=== PATIENT | female | born 1940 | race Caucasian/White ===

== ENCOUNTER 2016-11-03 13:23 | Emergency (ER) | payer MEDICARE ==
[~2016-11-03] VITALS: Ht 170.2 cm; Wt 76.0 kg
[~2016-11-03 13:23] MED LIST: HYDR-3533 PO; LEVO112T2 PO; METO25 PO; WARF5TAB PO; ZOCO40TA PO
[2016-11-03 13:26] VITALS: BP 145/68; PULSE 66; RESP 16; TEMP 98.3; O2SAT 97
[2016-11-03] MEDS ORDERED: WARF-23 PO (13:41)
[2016-11-03] MEDS ORDERED: LEVO137T2 PO (13:41)
[2016-11-03] MEDS ORDERED: METO25TA3 PO (13:41)
[2016-11-03] MEDS ORDERED: SIMV10TA PO (13:41)
[2016-11-03] MEDS ORDERED: SODIUM CHLORIDE 0.9% FLUSH 10 ML FLUSH IV FLUSH PRN (13:45)
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
[2016-11-03 13:57] VITALS: RESP 16; O2SAT 99
[2016-11-03 14:23] LABS: AUTOMATED NEUTROPHIL # 3.1 TH/MM3 (1.8-7.7); BASOPHIL # 0.1 TH/MM3 (0-0.2); BASOPHIL % 1.1 % (0.0-2.0); EOSINOPHIL # 0.1 TH/MM3 (0-0.4); EOSINOPHIL % 1.6 % (0.0-4.0); HEMATOCRIT 34.3 % (35.0-46.0); HEMO FLAGS DIFF FINAL; LYMPH % 29.2 % (9.0-44.0); LYMPHOCYTE # 1.5 TH/MM3 (1.0-4.8); MEAN CELL VOLUME 89.9 FL (80.0-100.0); MEAN CORPUSCULAR HEMOGLOBIN 29.9 PG (27.0-34.0); MEAN CORPUSCULAR HGB CONC 33.2 % (32.0-36.0); MONO % 7.2 % (0.0-8.0); NEUT % 60.9 % (16.0-70.0); PLATELET COUNT 218 TH/MM3 (150-450); RED BLOOD COUNT 3.82 MIL/MM3 (4.00-5.30); RED CELL DISTRIBUTION WIDTH 13.6 % (11.6-17.2); WHITE BLOOD COUNT 5.2 TH/MM3 (4.0-11.0)
--- NOTE | 2016-11-03 14:35 | RADHPO ---
EXAM DATE/TIME: 11/03/2016 14:19 [facility] COMPARISON: No previous studies available for comparison. INDICATIONS : Fell, has pain MEDICAL HISTORY : None. SURGICAL HISTORY : brain, r forearm ENCOUNTER: Initial ACUITY: 1 day PAIN SCORE: 5/10 LOCATION: Right forearm FINDINGS: There is a remote healed fracture the distal radial metaphysis. Dorsal plate and screw fixation of th e proximal ulna identified with remote fracture deformity of the proximal radius identified. CONCLUSION: No acute disease. Satish Stokes MD on November 03, 2016 at 14:33 Board Certified Radiologist. This report was verified electronically.
--- NOTE | 2016-11-03 14:36 | RADHPO ---
EXAM DATE/TIME: 11/03/2016 14:16 [facility] COMPARISON: WRIST RIGHT COMPLETE ([id number]), September 25, 2015, 16:08. INDICATIONS : fell, has pain MEDICAL HISTORY : None. SURGICAL HISTORY : Brain, right forearm ENCOUNTER: Initial ACUITY: 1 day PAIN SCORE: 5/10 LOCATION: Right wrist FINDINGS: Nonacute distal radial metaphyseal fracture, healed. Remote fourth metacarpal fracture. No acute frac tures. Decreased bone density. CONCLUSION: No acute disease. Satish Stokes MD on November 03, 2016 at 14:34 Board Certified Radiologist. This report was verified electronically.
--- NOTE | 2016-11-03 14:37 | RADHPO ---
EXAM DATE/TIME: 11/03/2016 14:13 [facility] COMPARISON: HAND RIGHT COMPLETE ([id number]), February 06, 2016, 14:46. INDICATIONS : Fell, has pain MEDICAL HISTORY : None. SURGICAL HISTORY : brain, right forearm ENCOUNTER: Initial ACUITY: 1 day PAIN SCORE: 5/10 LOCATION: Right hand FINDINGS: Decreased bone density. Remote fourth metacarpal, distal radial metaphyseal fracture and third middle phalanx fractures. There is mild osteoarthritis. No acute fractures or dislocations. CONCLUSION: No acute disease. Satish Stokes MD on November 03, 2016 at 14:34 Board Certified Radiologist. This report was verified electronically.
[2016-11-03 14:50] LABS: GLUCOSE,URINE NEG (NEG); KETONE, URINE NEG (NEG); NITRITE,URINE NEG (NEG); PH, URINE 6.5 (5.0-8.5)
[2016-11-03 14:55] LABS: BLOOD, URINE MOD (NEG)
[2016-11-03 14:56] LABS: METHOD OF COLLECTION CLEAN CATCH; URINE COLOR STRAW (YELLW/STRAW)
[2016-11-03 14:58] LABS: CULTURE IF INDICATED CULT NOT INDICATED; SQUAMOUS EPITHELIAL CELL URINE 0-5 /hpf (0-5); WBC, URINE 0-2 /hpf (0-5)
[2016-11-03 14:59] LABS: COMMENT (UR) CULT NOT INDICATED
--- NOTE | 2016-11-03 15:08 | RADHPO ---
EXAM DATE/TIME: 11/03/2016 14:37 [facility] COMPARISON: CT BRAIN W/O CONTRAST, April 30, 2016, 11:45. INDICATIONS : Fall today, general weakness. RADIATION DOSE: 63.98 CTDIvol (mGy) MEDICAL HISTORY : pulmonary embolism, brain cancer, hypertension SURGICAL HISTORY : Craniotomy. Hysterectomy. ENCOUNTER: Initial ACUITY: 1 day PAIN SCALE: 0/10 LOCATION: Bilateral head TECHNIQUE: Multiple contiguous axial images were obtained of the head. Using automated exposure control and adj ustment of the mA and/or kV according to patient size, radiation dose was kept as low as reasonably a chievable to obtain optimal diagnostic quality images. FINDINGS: There is no evidence for intracranial hemorrhage, mass effect, mass lesions, or edema. The visualize d bony structures appear intact. Slight degree of brain atrophy is seen. Slight periventricular whit e matter changes are seen nonspecific mostly consistent with chronic small vessel ischemic changes. There are no signs of acute infarction for technique. There is encephalomalacia in the left middle cr anial fossa and frontal lobe with ex vacuo dilatation of the left ventricle and encephalomalacia of l eft basal ganglia chronic in nature and not changed. CONCLUSION: Slight atrophic and small vessel ischemic changes without any evidence for acute hemorrhage or mass effect. Marly Baron MD on November 03, 2016 at 15:05 Board Certified Radiologist. This report was verified electronically.
[2016-11-03 15:17] LABS: APTT (PATIENT) 28.7 SEC (24.3-30.1); INTERNATIONAL NORMALIZED RATIO 1.4 RATIO; PROTHROMBIN TIME - PATIENT 15.2 SEC (9.8-11.6)
[2016-11-03 15:43] LABS: BICARBONATE 28.6 MEQ/L (21.0-32.0)
[2016-11-03 15:57] VITALS: BP 140/60
== END 2016-11-03 16:31 | disposition home or self-care (01) ==
LOC: PHED 13:23
DX: S69.91XA Unspecified injury of right wrist, hand and finger(s), initial encounter (principal); W19.XXXA Unspecified fall, initial encounter; Y92.481 Parking lot as the place of occurrence of the external cause; Z79.01 Long term (current) use of anticoagulants
CPT/HCPCS: 70450; 73090; 73110; 73130; 80048; 81001; 85025; 85610; 85730; 99284; L3908

== ENCOUNTER 2016-11-21 13:37 | Emergency (ER) | payer MEDICARE ==
[~2016-11-21] VITALS: Ht 170.2 cm; Wt 76.0 kg
[~2016-11-21 13:37] MED LIST changes: -HYDR-3533 PO; -LEVO112T2 PO; +LEVO137T2 PO; -METO25 PO; +METO25TA3 PO; +SIMV10TA PO; +WARF-23 PO; -WARF5TAB PO; -ZOCO40TA PO
[2016-11-21 13:39] VITALS: BP 160/77; PULSE 67; RESP 16; TEMP 97.7; O2SAT 96
--- NOTE | 2016-11-21 13:56 | PD ---
HPI Chief Complaint: Fall Time Seen by Provider: 13:44 Travel History International Travel<30 days: No Contact w/Intl Traveler<30days: No Traveled to known affect area: No History of Present Illness HPI The patient is a 76-year-old female who presents emergency department for right shoulder pain and right forearm and hand pain after mechanical fall. The patient states she tripped and fell over a curb, landing on her right upper extremity. The patient complains of pain over the right hand, right wrist, and right clavicle. Chest complains right leg pain, however, is able to ambulate without difficulty. The patient does note a superficial abrasion to the right hand, states her last tetanus shot was 2 years ago. The patient denies any head injury or neck pain after the fall. She denies any accompanying chest pain , shortness breath, nausea, vomiting, or abdominal pain. Symptoms are mild to moderate, exacerbated after falling, and there are no current alleviating factors. PFSH Past Medical History Hx Anticoagulant Therapy: Yes (WARFARIN) Cancer: Yes (BRAIN) Cardiovascular Problems: Yes (HTN, CHOL - STATES BRAIN ANEURYSM) High Cholesterol: Yes Chemotherapy: No Cerebrovascular Accident: Yes (right sided weakness) Diabetes: No Diminished Hearing: No Endocrine: No Gastrointestinal Disorders: No Genitourinary: No Hypertension: Yes Implanted Vascular Access Dvce: No Musculoskeletal: No Neurologic: Yes Psychiatric: No Respiratory: No Immunizations Current: Yes Radiation Therapy: No Thyroid Disease: Yes ?: Not Menopausal: Yes Past Surgical History Abdominal Surgery: No Cardiac Surgery: No Ear Surgery: No Endocrine Surgery: No Eye Surgery: No Genitourinary Surgery: No Gynecologic Surgery: Yes (HYSTERECTOMY) Hysterectomy: Yes Neurologic Surgery: Yes (CRANIOTOMY) Oral Surgery: No Thoracic Surgery: No Tonsillectomy: Yes Other Surgery: Yes Social History Alcohol Use: Yes (RARELY) Tobacco Use: No (quit 12 yrs ago smoked cigs) Substance Use: No Allergies-Medications (Allergen,Severity, Reaction): Coded Allergies: No Known Allergies (Unverified , 11/21/16) Reported Meds & Prescriptions Reported Meds & Active Scripts Active Reported Levothyroxine (Levothyroxine Sodium) 137 Mcg Tab 137 Mcg PO DAILY Warfarin 5 Mg Tab 5 Mg PO DAILY Simvastatin 10 Mg Tab 10 Mg PO DAILY Metoprolol Tartrate 25 Mg Tab 25 Mg PO DAILY Review of Systems Except as stated in HPI: all other systems reviewed are Neg HENT: Positive: Other (previous head/brain surgery for tumor), No: Headaches, Neck Pain Cardiovascular: No: Chest Pain or Discomfort Respiratory: No: Shortness of Breath Gastrointestinal: No: Nausea, Vomiting Musculoskeletal: Positive: Limited ROM, Edema, Pain Skin: Positive Other (abrasion to the right hand) Physical Exam Narrative GENERAL: Awake, alert, very pleasant 76-year-old female who appears her stated age and is in no acute respiratory distress. SKIN: Focused skin assessment warm/dry. Superficial abrasion of the extensor surface of the right hand over the fifth MCP. HEAD: Atraumatic. Normocephalic. EYES: No injection or drainage. ENT: No nasal bleeding or discharge. Mucous membranes pink and moist. NECK: Trachea midline. No JVD. CARDIOVASCULAR: Regular rate and rhythm. No murmur appreciated. RESPIRATORY: No accessory muscle use. Clear to auscultation. Breath sounds equal bilaterally. GASTROINTESTINAL: Abdomen soft, non-tender, nondistended. MUSCULOSKELETAL: The patient has mild deformity to the right hand with an abrasion over the fourth and fifth metacarpal. There is some mild edema to the right wrist with tenderness over the mid to distal right forearm and right wrist. Patient also has mild swelling over the mid right clavicle with mild tenderness. Positive radial pulses. Patient is able fully flex and extend the hips and knees bilaterally. The patient is able stand on the left leg alone and the right leg alone without difficulty. NEUROLOGICAL: Awake and alert. No obvious cranial nerve deficits. Motor grossly within normal limits. Normal speech. PSYCHIATRIC: Appropriate mood and affect; insight and judgment normal. Data Data Last Documented VS Vital Signs Date Time Temp Pulse Resp B/P Pulse Ox O2 Delivery O2 Flow Rate FiO2 11/21/16 13:39 97.7 67 16 160/77 96 Orders Clavicle (11/21/16 ) Forearm (2vws) (11/21/16 ) Hand, Limited (2vws) (11/21/16 ) Acetaminophen (Tylenol) (11/21/16 14:00) MDM Medical Decision Making Medical Screen Exam Complete: Yes Emergency Medical Condition: Yes Medical Record Reviewed: Yes Interpretation(s) X-ray of the right hand reveals no evidence of acute fracture. X-ray of the right forearm reveals postsurgical changes, no evidence of acute fracture. X-ray the right clavicle reveals no evidence of acute fracture Differential Diagnosis Differential diagnosis includes fracture, sprain, strain, hematoma, abrasion, laceration, dislocation. Narrative Course X-ray the right forearm, right clavicle, and right hand were obtained. The patient was administered Tylenol 650 mg orally for pain. The patient's tetanus shot is up-to-date per her report. X-rays reveal no acute fractures, duo reveal old injuries. The patient was placed in a Velcro wrist splint. She is advised to use Tylenol and/or Motrin as needed for pain, elevate, ice, and activity as tolerated. The patient will be provided a copy of her x-rays at discharge. Diagnosis Primary Impression: Fall Qualified Code: W19.XXXA - Fall, initial encounter Additional Impression: Right wrist injury Qualified Code: S69.91XA - Right wrist injury, initial encounter Patient Instructions: General Instructions Additional Instructions: Velcro wrist splint. Elevate, ice, activity as tolerated. Tylenol and or Motrin at home as needed for pain. Return if symptoms worsen or progress. Med/Other Pt SpecificInfo: No Change to Meds Disposition: 01 DISCHARGE HOME Condition: Stable Cruzito Lanier MD November 21, 2016 13:56
[2016-11-21] MEDS ORDERED: ACETAMINOPHEN 325 MG TAB PO ONE (14:00)
--- NOTE | 2016-11-21 15:53 | RADHPO ---
EXAM DATE/TIME: 11/21/2016 13:53 [facility] COMPARISON: No previous studies available for comparison. INDICATIONS : Right hand pain/laceration/swelling around MCP joint. MEDICAL HISTORY : Hyperthyroidism. Hypertension Hypercholesterolemia. CVA. SURGICAL HISTORY : Tonsillectomy. Craniotomy. Hysterectomy. Left ORIF leg. Left knee arthroscopy. Right ORIF forearm. ENCOUNTER: Initial ACUITY: 1 day PAIN SCORE: 10/10 LOCATION: Right hand. FINDINGS: Osseous structures are osteopenic. There is no evidence of acute fracture. There is no fracture of t he distal radius. Old fractures of the fourth and fifth metacarpals are also present. Joint spaces ar e maintained. CONCLUSION: 1. There is no evidence of acute fracture. Per Carrillo MD on November 21, 2016 at 15:51 Board Certified Radiologist. This report was verified electronically.
--- NOTE | 2016-11-21 15:56 | RADHPO ---
EXAM DATE/TIME: 11/21/2016 13:53 [facility] COMPARISON: No previous studies available for comparison. INDICATIONS : Right clavicular pain post fall today. MEDICAL HISTORY : Hypertension. Hypothyroidism. Hypercholesterolemia. CVA. SURGICAL HISTORY : Tonsillectomy. Discectomy, cervical. Hysterectomy. Left ORIF leg. Left knee arthroscopy.Right ORIF fo rearm. ENCOUNTER: Initial ACUITY: 1 day PAIN SCORE: 5/10 LOCATION: Right clavicle. FINDINGS: Osseous structures are osteopenic. There is an old fracture of the midshaft of the clavicle. The kelsey ohumeral joint is intact. CONCLUSION: 1. There is no evidence of acute fracture. Per Carrillo MD on November 21, 2016 at 15:54 Board Certified Radiologist. This report was verified electronically.
--- NOTE | 2016-11-21 15:56 | RADHPO ---
EXAM DATE/TIME: 11/21/2016 13:53 [facility] COMPARISON: FOREARM RIGHT (2VWS), November 03, 2016, 14:19. INDICATIONS : Right forearm pain post fall. MEDICAL HISTORY : Hyperparathyroidism. Hypertension Hypercholesterolemia. CVA. SURGICAL HISTORY : Tonsillectomy. Craniotomy. Hysterectomy. Left ORIF leg. Left knee arthroscopy. Right forearm ORIF. ENCOUNTER: Initial ACUITY: 1 day PAIN SCORE: 5/10 LOCATION: Right forearm. FINDINGS: There is previous internal fixation of a fracture of the proximal ulna in anatomic alignment. There i s an old fracture of the radial head which is ununited. Osseous structures are osteopenic. Old distal radius fracture is also present. CONCLUSION: 1. Postsurgical changes as above. There is no evidence of acute fracture. Per Carrillo MD on November 21, 2016 at 15:51 Board Certified Radiologist. This report was verified electronically.
== END 2016-11-21 16:09 | disposition home or self-care (01) ==
LOC: PHEFT 13:37
DX: S69.91XA Unspecified injury of right wrist, hand and finger(s), initial encounter (principal); I10 Essential (primary) hypertension; W18.09XA Striking against other object with subsequent fall, initial encounter; Y92.488 Other paved roadways as the place of occurrence of the external cause; Z79.01 Long term (current) use of anticoagulants
CPT/HCPCS: 73000; 73090; 73120; 99284; L3908

== ENCOUNTER 2016-11-24 15:00 | Inpatient (IN) | payer MEDICARE ==
[~2016-11-24] VITALS: Ht 170.2 cm; Wt 75.3 kg
[2016-11-24] VITALS (8 sets, daily range): BP systolic 155–221; BP diastolic 70–108; PULSE 63–88; RESP 16–20; TEMP 97.8–97.9; O2SAT 93–99
--- NOTE | 2016-11-24 16:14 | PD ---
HPI Chief Complaint: Injury Time Seen by Provider: 15:06 Travel History International Travel<30 days: No Contact w/Intl Traveler<30days: No Traveled to known affect area: No History of Present Illness HPI 76yo F presents to the ED with c/o right hand pain s/p slip and fall on outstretched hand an hour prior to coming. Pt trip during the transition from carpet to tile and landed on right hand. Denies any head trauma, LOC, chest pain , sob, n/v, abdominal pain, focal weakness or numbness. Pt states pain is mainly in fingers but had some right elbow and shoulder pain as well. PFSH Past Medical History Hx Anticoagulant Therapy: Yes (WARFARIN) Cancer: Yes (BRAIN) Cardiovascular Problems: Yes (HTN, CHOL - STATES BRAIN ANEURYSM) High Cholesterol: Yes Chemotherapy: No Cerebrovascular Accident: Yes (right sided weakness) Diabetes: No Diminished Hearing: No Endocrine: No Gastrointestinal Disorders: No Genitourinary: No Hypertension: Yes Implanted Vascular Access Dvce: No Musculoskeletal: No Neurologic: Yes Psychiatric: No Respiratory: No Immunizations Current: Yes Radiation Therapy: No Thyroid Disease: Yes Menopausal: Yes Past Surgical History Abdominal Surgery: No Cardiac Surgery: No Ear Surgery: No Endocrine Surgery: No Eye Surgery: No Genitourinary Surgery: No Gynecologic Surgery: Yes (HYSTERECTOMY) Hysterectomy: Yes Neurologic Surgery: Yes (CRANIOTOMY) Oral Surgery: No Thoracic Surgery: No Tonsillectomy: Yes Other Surgery: Yes Social History Alcohol Use: Yes (RARELY) Tobacco Use: No (quit 12 yrs ago smoked cigs) Substance Use: No Allergies-Medications (Allergen,Severity, Reaction): Coded Allergies: Morphine (Verified Allergy, Mild, 11/24/16) Reported Meds & Prescriptions Reported Meds & Active Scripts Active Acetaminophen Extra Strength (Acetaminophen) 500 Mg Tab 500 Mg PO Q6H PRN Reported Levothyroxine (Levothyroxine Sodium) 137 Mcg Tab 137 Mcg PO DAILY Simvastatin 10 Mg Tab 10 Mg PO DAILY Metoprolol Tartrate 25 Mg Tab 25 Mg PO DAILY Review of Systems Except as stated in HPI: all other systems reviewed are Neg Physical Exam Narrative GENERAL: 76yo F in mild distress. SKIN: Focused skin assessment warm/dry. HEAD: Atraumatic. Normocephalic. EYES: Pupils equal and round. No scleral icterus. No injection or drainage. ENT: No nasal bleeding or discharge. Mucous membranes pink and moist. NECK: Trachea midline. No JVD. CARDIOVASCULAR: Regular rate and rhythm. No murmur appreciated. RESPIRATORY: No accessory muscle use. Clear to auscultation. Breath sounds equal bilaterally. GASTROINTESTINAL: Abdomen soft, non-tender, nondistended. MUSCULOSKELETAL: RUE: Radial pulse 2+. +TTP MCP 3-5. Sensation intact. No ttp distal radius and ulna. Abrasion on right elbow with some ttp. No forearm ttp. Compartment soft. Mild ttp right shoulder but good range of motion. Sensation intact. NEUROLOGICAL: Awake and alert. No obvious cranial nerve deficits. Motor grossly within normal limits. Normal speech. PSYCHIATRIC: Appropriate mood and affect; insight and judgment normal. Data Data Last Documented VS Vital Signs Date Time Temp Pulse Resp B/P Pulse Ox O2 Delivery O2 Flow Rate FiO2 11/24/16 19:08 88 18 221/93 99 Room Air 11/24/16 15:03 97.8 Orders Hand, Limited (2vws) (11/24/16 ) Elbow, Limited (Ap&Lat) (11/24/16 ) Shoulder, Limited(2vws) (11/24/16 ) Acetaminophen (Tylenol) (11/24/16 17:15) Splint Or Brace Apply/Monitor (11/24/16 17:09) Hydralazine Inj (Apresoline Inj) (11/24/16 17:30) Morphine Inj (Morphine Inj) (11/24/16 17:30) Clonidine (Catapres) (11/24/16 19:15) Diphenhydramine Inj (Benadryl Inj) (11/24/16 19:30) Methylprednisolone So Succ Inj (Solumedr (11/24/16 19:45) Admit Order (Ed Use Only) (11/24/16 19:36) [facility] Medical Decision Making Medical Screen Exam Complete: Yes Emergency Medical Condition: Yes Interpretation(s) Last Impressions Shoulder X-Ray 11/24/16 0000 Signed Impressions: Service Date/Time: Thursday, November 24, 2016 15:40 - CONCLUSION: No acute abnormality is seen. There is chronic change at the right clavicle and right 6th rib. The patient has evidence of right medial chest surgery. Doug Orosco MD Hand X-Ray 11/24/16 0000 Signed Impressions: Service Date/Time: Thursday, November 24, 2016 15:32 - CONCLUSION: Suspected acute fracture at the anterior distal aspect of the 5th metacarpal. Doug Orosco MD Elbow X-Ray 11/24/16 0000 Signed Impressions: Service Date/Time: Thursday, November 24, 2016 15:37 - CONCLUSION: Chronic change at the elbow as described above. Doug Orosco MD Differential Diagnosis Fracture vs. dislocation vs. contusion Narrative Course 76yo F with right hand pain s/p trip and fall on outstretched hand today. Pt states she is up to date on tetanus, last time was 2 years ago. Xray right shoulder showed no acute abnormality. Xray right elbow showed chronic change at elbow. Xray right hand showed suspected fracture at the anterior distal aspect of the 5th metacarpal. Pt does have tenderness there. Neurovascular intact. No open wounds. Ulnar gutter splint placed. Pt to follow up with hand surgery clinic as outpatient. Pt given acetaminophen for pain. BP was very elevated so hydralazine 10mg IV was given. Pt was also given morphine 2mg IV for pain but started feeling nauseous and shaky. Pt reevaluated at bedside and was no longer nauseous but feels shaking. Pt given clonidine 0.1mg PO. Pt reevaluated at bedside and states she feels her throat swelling. Uvula is midline. Patent airway. No rash. Will give diphenhydramine 50mg IV and reevaluate. Lungs are clear bilaterally. Placed morphine as an allergy. Pt also given 125 mg solumedrol IV. Discussed with Dr. Russo and accepted to his service in ICU for airway monitoring. Critical Care Narrative Aggregate critical care time was 35 minutes. Time to perform other separately billable procedures was not included in the critical care time. My time did not include minutes spent treating any other patients simultaneously or on activities that did not directly contribute to the patient's treatment. The services I provided to this patient were to treat and/or prevent clinically significant deterioration that could result in: cardiovascular collapse or . I provided critical care services requiring my management, as noted below: Chart data review, documentation time, medication orders and management, vital sign assessments/reviewing monitor data, ordering and reviewing lab tests, ordering and interpreting/reviewing x-rays and diagnostic studies, care of the patient and discussion of the patient with the admitting physicians. Diagnosis Primary Impression: Allergic reaction Qualified Code: T78.40XA - Allergic reaction, initial encounter Additional Impression: Metacarpal bone fracture Qualified Code: S62.366A - Closed nondisplaced fracture of neck of fifth metacarpal bone of right hand, initial encounter Admitting Information Admitting Physician Requests: Observation Patient Instructions: General Instructions Departure Forms: Tests/Procedures Additional Instructions: Please follow up with hand surgery clinic in 3-7 days. Return to the ED if symptoms worsen. Med/Other Pt SpecificInfo: Prescription(s) given Scripts Acetaminophen (Acetaminophen Extra Strength)500 Mg [id number] Mg PO Q6H PRN (PAIN SCALE 1 TO 4) #20 TAB Ref 0 Prov:Ana Fischer DO 11/24/16 Disposition: 01 DISCHARGE HOME Condition: Stable Ana Fischer DO November 24, 2016 16:14
--- NOTE | 2016-11-24 16:16 | RADRPT ---
EXAM DATE/TIME: 11/24/2016 15:32 [facility] COMPARISON: HAND RIGHT COMPLETE ([id number]), February 06, 2016, 14:46. HAND RIGHT LIMITED (2VWS), November 21, 2016, 13:5 3. INDICATIONS : Right hand pain post fall, Swelling MEDICAL HISTORY : Hyperthyroidism. Hypertension Hypercholesterolemia. CVA. SURGICAL HISTORY : Tonsillectomy. Craniotomy. Hysterectomy. Left ORIF leg. Left knee arthroscopy. Right ORIF forearm ENCOUNTER: Initial ACUITY: 4 - 6 days PAIN SCORE: 10/10 LOCATION: Right hand FINDINGS: There appears to be acute fracturing of the distal 5th metacarpal. This is best seen on the lateral view. It appears this involves the anterior aspect of the 5th metacarpal head. There appears to be an old healed fracture deformity at the distal 4th metacarpal. No other possible fracture is seen. The bones and joints are normally aligned. CONCLUSION: Suspected acute fracture at the anterior distal aspect of the 5th metacarpal. Doug Orosco MD on November 24, 2016 at 16:11 Board Certified Radiologist. This report was verified electronically.
--- NOTE | 2016-11-24 16:17 | RADRPT ---
EXAM DATE/TIME: 11/24/2016 15:37 [facility] COMPARISON: ELBOW RIGHT LIMITED (AP & LAT), September 25, 2015, 16:11. INDICATIONS : Right elbow pain, Post fall MEDICAL HISTORY : Hyperparathyroidism. Hypertension Hypercholesterolemia. CVA. SURGICAL HISTORY : Tonsillectomy. Craniotomy. Hysterectomy. Left ORIF leg. Left knee Tonsillectomy. Craniotomy. Hysterec octavio. Left ORIF leg. Left knee ENCOUNTER: Initial ACUITY: 4 - 6 days PAIN SCORE: 10/10 LOCATION: Right elbow FINDINGS: There is an orthopedic plate seen along the proximal ulna. The elbow joint appears aligned. There i s a chronic fracture deformity at the proximal radius. The radial head appears separate from the rad ial shaft. This appearance is unchanged from the prior examination. A significant effusion is not s een. An acute fracture is not seen. CONCLUSION: Chronic change at the elbow as described above. Doug Orosco MD on November 24, 2016 at 16:14 Board Certified Radiologist. This report was verified electronically.
--- NOTE | 2016-11-24 16:24 | RADRPT ---
EXAM DATE/TIME: 11/24/2016 15:40 [facility] COMPARISON: No previous studies available for comparison. INDICATIONS : Right shoulder pain post fall MEDICAL HISTORY : Hyperparathyroidism. Hypertension Hypercholesterolemia. CVA. SURGICAL HISTORY : Tonsillectomy. Craniotomy. Hysterectomy. Left ORIF leg. Left knee arthrosco py. Right forearm ORIF. ENCOUNTER: Initial ACUITY: 4 - 6 days PAIN SCORE: 5/10 LOCATION: Right forearm FINDINGS: An acute fracture is not seen. The glenohumeral joint and acromioclavicular joint appear grossly nor karley aligned. There is some questionable deformity at the mid clavicle potentially from prior injur y. There also appears to be a deformity at the 6th right rib. Clips are seen over the medial right chest. CONCLUSION: No acute abnormality is seen. There is chronic change at the right clavicle and right 6th rib. The patient has evidence of right medial chest surgery. Doug Orosco MD on November 24, 2016 at 16:18 Board Certified Radiologist. This report was verified electronically.
[2016-11-24] MEDS ORDERED: ACETAMINOPHEN 500 MG CPLT PO ONE (17:15)
[2016-11-24] MEDS ORDERED: ACET500T36 PO (17:27)
[2016-11-24] MEDS ORDERED: MORPHINE SULFATE 4 MG/ML INJ IV PUSH ONE (17:30)
[2016-11-24] MEDS ORDERED: hydrALAZINE HCL 20 MG/ML VIAL IV PUSH ONE (17:30)
[2016-11-24] MEDS ORDERED: cloNIDine HCL 0.1 MG TAB PO ONE (19:15)
[2016-11-24] MEDS ORDERED: diphenhydrAMINE HCL 50 MG/ML VIAL IV PUSH ONE (19:30)
[2016-11-24] MEDS ORDERED: methylPREDNISolone SOD SUCC 125 MG/2 ML VIAL IVP ONE (19:45)
[2016-11-24] MEDS ORDERED: cloNIDine HCL 0.1 MG TAB PO PRN (20:15)
[2016-11-24] MEDS ORDERED: ACETAMINOPHEN 500 MG CPLT PO PRN (20:15)
[2016-11-24] MEDS ORDERED: ENALAPRILAT 1.25 MG/ML VIAL IV PRN (20:15)
[2016-11-24] MEDS ORDERED: LABETALOL HCL 100 MG/20 ML VIAL IV PRN (20:15)
[2016-11-24] MEDS ORDERED: diphenhydrAMINE HCL 25 MG CAP PO PRN (20:15)
[2016-11-24] MEDS ORDERED: SODIUM CHLORIDE 0.9% FLUSH 10 ML FLUSH IV FLUSH PRN (20:15)
[2016-11-24] MEDS ORDERED: CHLORHEXIDINE GLUCONATE 2 % 1 PACK (2 CLOTHS)(extra cloths) TOPICAL PRN (21:30)
[2016-11-24 21:47] LABS: HEMATOCRIT 37.4 % (35.0-46.0); MEAN CELL VOLUME 89.7 FL (80.0-100.0); MEAN CORPUSCULAR HEMOGLOBIN 29.1 PG (27.0-34.0); MEAN CORPUSCULAR HGB CONC 32.4 % (32.0-36.0); PLATELET COUNT 219 TH/MM3 (150-450); RED BLOOD COUNT 4.17 MIL/MM3 (4.00-5.30); RED CELL DISTRIBUTION WIDTH 14.6 % (11.6-17.2); REVIEW FLAG FINAL; WHITE BLOOD COUNT 5.9 TH/MM3 (4.0-11.0)
[2016-11-24 22:02] LABS: INTERNATIONAL NORMALIZED RATIO 2.1 RATIO; PROTHROMBIN TIME - PATIENT 23.5 SEC (9.8-11.6)
[2016-11-24 22:07] LABS: BICARBONATE 25.7 MEQ/L (21.0-32.0); POTASSIUM 3.8 MEQ/L (3.5-5.1)
--- NOTE | 2016-11-24 22:24 | MH ---
cc: TILA RUSSO MD DATE OF ADMISSION 11/24/2016 DATE OF : [address] Ma REASON FOR ADMISSION Fall and injury. HISTORY OF PRESENT ILLNESS The patient is a very pleasant 76-year female with significant past medical history of hypertension, hypothyroidism and hyperlipidemia. As per patient, when she was shopping she tripped and fell on outstretched hand. She had pain so she was brought to the ER. She was transitioned from carpet and tile. When she fell down, she started having pain but there is no head trauma, loss of consciousness or blackout. She has no dizziness or presyncope. The patient has no shortness of breath, nausea, vomiting. Has no chest pain or diaphoresis. There is no numbness or tingling sensation. She was brought to the emergency room. In the emergency room, evaluated by the ER physician, found the patient has a fifth metacarpal fracture. During her stay, the patient was found to have high blood pressure in 200s for which she was given some medication, but it was still high. It came down and then came back again. During her stay, the patient was given morphine. After morphine, she was feeling just nervous, nauseous and also feeling swelling in her throat. At that time, ER physician examined her. Her uvula was midline. She was given diphenhydramine 50 mg IV. After discussion with the emergency room physician, Solu-Medrol was given one time. She has no shortness of breath as per ER physician. The patient was examined with the SHEET ROCK APPLICATOR. As per the SHEET ROCK APPLICATOR, she had swollen tongue at that time. When I saw the patient in the emergency room, she was slightly anxious and she was feeling slightly full in her throat, but it is a lot better than before. She has no difficulty in swallowing. No difficulty in breathing. She has no wheezing. There is no headache or dizziness. She has some ache on movement of the right hand, but there is no other associated symptoms. The patient denies any chest pain, diaphoresis, palpitations. The patient denies any abdominal pain. Has no visual symptom or hearing problem. No headache or dizziness. PAST MEDICAL HISTORY As described above. MEDICATIONS Reviewed. As per record, 1. Levothyroxine 2. 3. Metoprolol. ALLERGIES As per patient, she did not know but now she found out she is ALLERGIC TO MORPHINE. SOCIAL HISTORY The patient quit smoking 12 years ago. Does not do any drugs. Rarely drinks. PAST SURGICAL HISTORY 1. History of hysterectomy 2. Craniotomy 3. Tonsillectomy in the past. REVIEW OF SYSTEMS Negative for 10 systems. FAMILY HISTORY Reviewed, noncontributory. PHYSICAL EXAMINATION GENERAL: The patient is alert and oriented lying on bed without any apparent distress. VITAL SIGNS: Vitals on monitor showed blood pressure systolic more than 207, diastolic more than 100. Pulse 78 regular, respiratory rate is 18, temperature afebrile. Pulse ox of 98% on room air. HEENT: Head is normocephalic. Negative conjunctival icterus. Mouth unremarkable. There is a questionable slightly swollen tongue. NECK: Supple. Central trachea. No stridor noted. CHEST: Good air entry. No adventitious sound noted. CVS: S1 and S2 audible. Unable to hear any S3 gallop. GI: Abdomen soft, nontender, no organomegaly. Positive bowel sounds. MUSCULOSKELETAL: No cyanosis or pedal edema appreciated. The patient's right hand and arm in soft cast. SKIN: Warm and dry. DIAL PRINTER: Alert, oriented, normal facial features, normal speech, normal power and tone of extremities. PSYCHIATRIC: Appropriate mood and affect. IMAGING STUDIES Elbow x-ray shows chronic changes at elbow. Hand x-ray shows suspected acute fracture at the anterior distal aspect of the fifth metacarpal. Shoulder x-ray was done which shows no acute abnormalities seen. There is chronic changes in the right clavicle in the right 6th rib. The patient has evidence of right medial chest surgery. LABORATORY DATA None available yet. ASSESSMENT 1. Hypertensive urgency. 2. Anaphylactic reaction to morphine 3. Right fifth metacarpal fracture status post fall. 4. Hypothyroidism. 5. Hyperlipidemia. PLAN Admit in the ICU for observation at least for tonight. As the patient has feeling of fullness in her throat and there is a questionable swollen tongue. We will give Solu-Medrol again one more dose. Monitor her blood pressure closely as it is still high. Keep her on p.r.n. medication. If needed we will add more medications. Continue home medications as needed. Analgesics, Tylenol. Labs BMP and CBC. Benadryl on a p.r.n. basis. Condition is guarded to critical. Further recommendation to follow as the patient progress. See orders. Discussed with the patient in detail. Discussed with the ER physician. Discussed with RN. Tila Russo MD JP/ /9:23 PM /9:59 PM
[2016-11-25] VITALS (10 sets, daily range): BP systolic 134–185; BP diastolic 62–91; PULSE 62–85; RESP 16–20; TEMP 96.4–98.3; O2SAT 91–95
[2016-11-25] MEDS ORDERED: methylPREDNISolone SOD SUCC 40 MG/1 ML VIAL IV PUSH ONE
[2016-11-25] MEDS: SODIUM CHLORIDE 0.9% FLUSH 10 ML FLUSH IV FLUSH SCH ×3 (00:17→20:27)
[2016-11-25] MEDS: ALPRAZolam 0.25 MG TAB PO PRN ×2 (00:43→20:27)
[2016-11-25] MEDS: CHLORHEXIDINE GLUCONATE 2 % 1 PACK (2 CLOTHS)(taper/protocol) TOPICAL SCH (03:55)
[2016-11-25] MEDS: LEVOTHYROXINE SODIUM 112 MCG TAB PO SCH (05:00)
[2016-11-25] MEDS: LEVOTHYROXINE SODIUM 25 MCG TAB PO SCH (05:00)
[2016-11-25] MEDS: PRAVASTATIN SOD 20 MG TAB PO SCH (09:51)
[2016-11-25] MEDS: METOPROLOL TARTRATE 25 MG TAB PO SCH (09:51)
--- NOTE | 2016-11-25 11:04 | HHI.PR ---
Subjective Remarks pt is feeling some ach at hand no other complaint no sob no swallowing difficulty no cough no n/v no headach or anxiety no abd pain no chest pain ROS for 12 point system is unremarkable Objective Objective Results - Vital Signs Date Time Temp Pulse Resp B/P Pulse Ox O2 Delivery O2 Flow Rate FiO2 11/25/16 06:00 68 11/25/16 04:00 71 16 134/62 93 11/25/16 04:00 71 11/25/16 02:00 70 11/25/16 00:00 64 11/25/16 00:00 97.7 64 16 185/78 95 11/24/16 22:00 63 11/24/16 22:00 97.9 63 16 155/70 93 11/24/16 21:20 71 11/24/16 21:05 198/87 11/24/16 20:34 78 20 206/100 98 Room Air 11/24/16 19:08 88 18 221/93 99 Room Air 11/24/16 18:41 80 20 175/108 99 Room Air 11/24/16 18:32 85 18 212/105 98 Room Air 11/24/16 15:03 97.8 68 16 201/93 98 I/O 11/24/16 11/24/16 11/24/16 11/25/16 11/25/16 11/25/16 07:00 15:00 23:00 07:00 15:00 23:00 Intake Total 240 ml Output Total 100 ml 300 ml Balance -100 ml -60 ml Intake Oral 240 ml Output Urine Total 100 ml 300 ml # Voids 1 Result Diagram: 11/24/16213811/24/162138 Other Results Laboratory Tests Test 11/24/16 11/24/16 21:39 21:45 White Blood Count 5.9 Red Blood Count 4.17 Hemoglobin 12.1 Hematocrit 37.4 Mean Corpuscular Volume 89.7 Mean Corpuscular Hemoglobin 29.1 Mean Corpuscular Hemoglobin 32.4 Concent Red Cell Distribution Width 14.6 Platelet Count 219 Mean Platelet Volume 8.2 Prothrombin Time 23.5 Prothromb Time International 2.1 Ratio Sodium Level 141 Potassium Level 3.8 Chloride Level 107 Carbon Dioxide Level 25.7 Anion Gap 8 Blood Urea Nitrogen 15 Creatinine 0.71 Estimat Glomerular Filtration 80 Rate Random Glucose 111 Calcium Level 9.1 Nasal Screen MRSA (PCR) MRSA NOT DETECTED Physical Exam Physical Exam GENERAL: The patient is alert and oriented lying on bed without any apparent distress. VITAL SIGNS: reviewed HEENT: Head is normocephalic. Negative conjunctival icterus. Mouth unremarkable. There is a no swollen tongue today. as compared to today yesterday it was swollen NECK: Supple. Central trachea. No stridor noted. CHEST: Good air entry. No adventitious sound noted. CVS: S1 and S2 audible. Unable to hear any S3 gallop. GI: Abdomen soft, nontender, no organomegaly. Positive bowel sounds. MUSCULOSKELETAL: No cyanosis or pedal edema appreciated. The patient's right hand and arm in soft cast. SKIN: Warm and dry. PERSHING MISSILE CREWMEMBER: Alert, oriented, normal facial features, normal speech, normal power and tone of extremities. PSYCHIATRIC: Appropriate mood and affect. A/P Assessment and Plan 1. Hypertensive urgency. 2. Anaphylactic reaction to morphine 3. Right fifth metacarpal fracture status post fall. 4. Hypothyroidism. 5. Hyperlipidemia. PLAN seen in ICU labs reviewed meds reviwed improving controll of BP cont current meds OOB encourage ambulation and monitor BP PT eval Monitor her blood pressure has inc INR, pt is not good historian will try to get pharmacy information as keyon rn on floor in detail Continue home medications as needed. Analgesics, Tylenol. Discussed with the patient in detail. Discussed with RN. overall stable to tx to floor with tele will reeat INR tomorrow Cherelle Russo MD November 25, 2016 11:04
[2016-11-26] VITALS: BP 138/65; PULSE 68; RESP 18; TEMP 96.8; O2SAT 94
[2016-11-26 04:00] VITALS: BP 161/72; PULSE 74; RESP 18; TEMP 96.4; O2SAT 94
[2016-11-26] MEDS: CHLORHEXIDINE GLUCONATE 2 % 1 PACK (2 CLOTHS)(taper/protocol) TOPICAL SCH (04:00)
[2016-11-26] MEDS: LEVOTHYROXINE SODIUM 25 MCG TAB PO SCH (04:40)
[2016-11-26] MEDS: LEVOTHYROXINE SODIUM 112 MCG TAB PO SCH (04:40)
[2016-11-26 08:00] VITALS: BP 162/87; PULSE 66; RESP 16; TEMP 96.9; O2SAT 95
[2016-11-26] MEDS: PRAVASTATIN SOD 20 MG TAB PO SCH (08:11)
[2016-11-26] MEDS: METOPROLOL TARTRATE 25 MG TAB PO SCH ×2 (08:11→20:37)
[2016-11-26] MEDS: SODIUM CHLORIDE 0.9% FLUSH 10 ML FLUSH IV FLUSH SCH ×2 (08:16→20:38)
[2016-11-26 10:08] LABS: PROTHROMBIN TIME - PATIENT 22.6 SEC (9.8-11.6)
[2016-11-26 12:00] VITALS: BP 168/86; PULSE 63; RESP 16; TEMP 95.5; O2SAT 97
--- NOTE | 2016-11-26 13:06 | HHI.PR ---
Subjective Interval History awake alert and oriented BP still slightly elevated complaining of dysphagia, for over 2 weeks elevated INR wants to take a shower no other complaints no family at bed side Vitals/Results Intake & Output 11/25/16 11/25/16 11/26/16 14:59 22:59 06:59 Intake Total 355 ml 480 ml 240 ml Output Total 500 ml Balance -145 ml 480 ml 240 ml Intake Oral 350 ml 480 ml 240 ml IV Total 5 ml Output Urine Total 500 ml # Voids 2 2 3 # Bowel Movements 0 0 Vital Signs Vital Signs Date Time Temp Pulse Resp B/P Pulse Ox O2 Delivery O2 Flow Rate FiO2 11/26/16 08:00 96.9 66 16 162/87 95 11/26/16 04:00 96.4 74 18 161/72 94 11/26/16 00:00 96.8 68 18 138/65 94 11/25/16 20:00 96.4 71 18 158/91 95 11/25/16 19:15 69 11/25/16 15:00 97.1 62 20 146/67 93 CBC/BMP: 11/24/169 11/24/162138 Lab Results Laboratory Tests Test 11/26/16 09:45 Prothrombin Time 22.6 SEC Prothromb Time International 2.0 RATIO Ratio Assessment/Plan Assessment/Plan Physical Exam Physical Exam GENERAL: The patient is alert and oriented lying on bed without any apparent distress. VITAL SIGNS: reviewed HEENT: Head is normocephalic. Negative conjunctival icterus. Mouth unremarkable. There is a no swollen tongue . NECK: Supple. Central trachea. No stridor noted. CHEST: Good air entry. No adventitious sound noted. CVS: S1 and S2 audible. Unable to hear any S3 gallop. GI: Abdomen soft, nontender, no organomegaly. Positive bowel sounds. MUSCULOSKELETAL: No cyanosis or pedal edema appreciated. The patient's right hand and arm in soft cast. SKIN: Warm and dry. FLOOR REFINISHER: Alert, oriented, normal facial features, normal speech, normal power and tone of extremities. PSYCHIATRIC: Appropriate mood and affect. Plan A/P Assessment and Plan 1. Hypertensive urgency. 2. Anaphylactic reaction to morphine 3. Right fifth metacarpal fracture status post fall. 4. Hypothyroidism. 5. Hyperlipidemia. PLAN labs reviewed meds reviwed BP still slightly elevated increase metoprolol to 25 mg po bid OOB PT eval has inc INR check LFTS complaining of dysphagia , for atleast 2 weeks will consult GI for dysphagia eval and Elevated INR Continue home medications as needed. Analgesics, Tylenol. Discussed with the patient in detail. Discussed with RN. labs in Aleksandra López MD November 26, 2016 13:06
[2016-11-26] MEDS ORDERED: PHYTONADIONE 10 MG/ML VIAL SQ ONE (15:30)
--- NOTE | 2016-11-26 15:37 | PD.CONS ---
HPI History of Present Illness This is a 76 year old [lady] who presented to hospital saturday after a fall. She is now c/o that she has had trouble swallowing for the last 2 weeks. She has difficulty getting food down, feels like it gets stuck. She also has difficulty swallowing fluids. She doesn't cough or choke, no regurgitation. No weight loss, n/v, abd pain, no blood in stool or tarry stools. She does have BMs more frequently than she used to. She is not on any blood thinners, never had colonoscopy or EGD. (Sahnia Das) PFSH Past Medical History NONE per pt Past Surgical History back surgery hysterectomy (Shania Das) Coded Allergies: Morphine (Verified Allergy, Mild, 11/24/16) Medications Current Medications Medications (Trade) Dose Ordered Sig/Pushpa Route PRN Reason Start Time Stop Time Status Last Admin Dose Admin Sodium Chloride (NS Flush) 2 ml UNSCH PRN IV FLUSH FLUSH AFTER USING IV ACCESS 11/24/16 20:15 Sodium Chloride (NS Flush) 2 ml BID IV FLUSH 11/24/16 21:00 11/25/16 20:27 Enalaprilat (Vasotec Inj) 1.25 mg Q6H PRN IV SEE LABEL COMMENTS 11/24/16 20:15 Labetalol HCl (Trandate Inj) 10 mg Q6H PRN IV SEE LABEL COMMENTS 11/24/16 20:15 11/25/16 00:16 Clonidine (Catapres) 0.1 mg Q6H PRN PO SEE LABEL COMMENTS 11/24/16 20:15 Diphenhydramine HCl (Benadryl) 25 mg Q4H PRN PO HIVES/ITCHING/ANAPHYLAXIS 11/24/16 20:15 Acetaminophen (Tylenol) 500 mg Q6H PRN PO PAIN SCALE 1 TO 4 11/24/16 20:15 Levothyroxine Sodium (Synthroid) 112 mcg DAILY@0600 PO 11/25/16 06:00 11/26/16 04:40 Pravastatin Sodium (Pravachol) 20 mg DAILY PO 11/25/16 09:00 11/26/16 08:11 Levothyroxine Sodium (Synthroid) 25 mcg DAILY@0600 PO 11/25/16 06:00 11/26/16 04:40 Miscellaneous Information Patient in critical care unit? Ass... [id number] .XX 11/24/16 21:30 11/24/16 21:30 Chlorhexidine Gluconate (Chlorhexidine 2% Cloth) 3 pack DAILY@04 TOPICAL 11/25/16 04:00 11/29/16 04:01 11/25/16 03:55 Chlorhexidine Gluconate (Chlorhexidine 2% Cloth) 3 pack UNSCH PRN TOPICAL HYGIENIC CARE 11/24/16 21:30 11/29/16 21:21 Alprazolam (Xanax) 0.25 mg TID PRN PO ANXIETY 11/25/16 00:45 11/25/16 20:27 Metoprolol Tartrate (Lopressor) 25 mg BID PO 11/26/16 21:00 Family History cervical ca breast ca Social History rare ETOH no tobacco or illicit drugs (Shania Das) Review of Systems Constitutional: DENIES: Fever, Weight loss Eyes: DENIES: Blurred vision Ears, nose, mouth, throat: DENIES: Hearing loss Respiratory: DENIES: Cough Cardiovascular: DENIES: Chest pain Gastrointestinal: COMPLAINS OF: Difficulty Swallowing, DENIES: Abdominal pain , Black stools, Bloody stools, Constipation, Diarrhea, Nausea, Vomiting, Anorexia Genitourinary: DENIES: Hematuria Musculoskeletal: DENIES: Muscle aches Integumentary: DENIES: Pruritus Hematologic/lymphatic: DENIES: Bruising Neurologic: DENIES: Abnormal gait Psychiatric: DENIES: Confusion (Shania Das) GI Exam Vitals I&O Vital Signs Date Time Temp Pulse Resp B/P Pulse Ox O2 Delivery O2 Flow Rate FiO2 11/26/16 12:00 95.5 63 16 168/86 97 11/26/16 08:00 96.9 66 16 162/87 95 11/26/16 04:00 96.4 74 18 161/72 94 11/26/16 00:00 96.8 68 18 138/65 94 11/25/16 20:00 96.4 71 18 158/91 95 11/25/16 19:15 69 I/O 11/25/16 11/25/16 11/25/16 11/26/16 11/26/16 11/26/16 07:00 15:00 23:00 07:00 15:00 23:00 Intake Total 240 ml 355 ml 480 ml 240 ml Output Total 300 ml 500 ml Balance -60 ml -145 ml 480 ml 240 ml Intake Oral 240 ml 350 ml 480 ml 240 ml IV Total 5 ml Output Urine Total 300 ml 500 ml # Voids 2 2 3 # Bowel Movements 0 0 Imaging Last Impressions Shoulder X-Ray 11/24/16 0000 Signed Impressions: Service Date/Time: Thursday, November 24, 2016 15:40 - CONCLUSION: No acute abnormality is seen. There is chronic change at the right clavicle and right 6th rib. The patient has evidence of right medial chest surgery. Doug Orosco MD Hand X-Ray 11/24/16 0000 Signed Impressions: Service Date/Time: Thursday, November 24, 2016 15:32 - CONCLUSION: Suspected acute fracture at the anterior distal aspect of the 5th metacarpal. Doug Orosco MD Elbow X-Ray 11/24/16 0000 Signed Impressions: Service Date/Time: Thursday, November 24, 2016 15:37 - CONCLUSION: Chronic change at the elbow as described above. Doug Orosco MD Laboratory Test 11/26/16 09:45 Prothrombin Time 22.6 SEC Prothromb Time International 2.0 RATIO Ratio Physical Examination HEENT:EOMI; atraumatic; no jaundice. CHEST: CTA CARDIAC: RRR ABDOMEN: Soft, nondistended, nontender; no hepatosplenomegaly; bowel sounds are present in all four quadrants. EXTREMITIES: No clubbing, cyanosis, or edema. SKIN: Normal; no rash; no jaundice. RED CROSS EXECUTIVE DIRECTOR: No focal deficits; alert and oriented times three. (Shania Das [facility]) Assessment and Plan Plan ASSESSMENT - dysphagia - onset 2 w ago, trouble swallowing liquids, solids alike. Will do EGD with poss dilation. If neg, consider swallow eval - elevated INR - pt on blood thinners, no known liver issues. LFT pending. PLAN - EGD w/ poss dilation in am - obtain consents - NPO after midnight - vitamin K sq now - repeat INR tomorrow 0600 - If INR > 1.5 tomorrow, give 2 units FFP - await LFT - if EGD neg consider swallow eval This pt seen by myself and Dr Caballero and this note is written on his behalf ( Shania Das) Physician Comments Patient seen and examined Agree with above Continue with current supportive care Monitor labs Plan for an EGD with dilation tomorrow We will need to correct coagulopathy Recommend a hematology to further evaluate coagulopathy (Jnoe Caballero MD) Shania Das November 26, 2016 15:37 Jone Caballero MD November 26, 2016 21:29
[2016-11-26 16:00] VITALS: BP 167/85; PULSE 63; RESP 20; TEMP 96.6; O2SAT 95
[2016-11-26 19:03] LABS: ALKALINE PHOSPHATASE 72 U/L (45-117); ALT (GPT) 26 U/L (10-53); AST (GOT) 24 U/L (15-37); INDIRECT BILIRUBIN 0.1 MG/DL (0.0-0.8); TOTAL BILIRUBIN ADULT 0.2 MG/DL (0.2-1.0)
[2016-11-26 20:00] VITALS: BP 152/79; PULSE 74; RESP 16; TEMP 97.8; O2SAT 93
[2016-11-27] VITALS: BP 135/71; PULSE 65; RESP 15; TEMP 97.5; O2SAT 94
[2016-11-27] MEDS: CHLORHEXIDINE GLUCONATE 2 % 1 PACK (2 CLOTHS)(taper/protocol) TOPICAL SCH (03:35)
[2016-11-27 04:00] VITALS: BP 134/75; PULSE 58; RESP 15; TEMP 97.6; O2SAT 95
[2016-11-27] MEDS: LEVOTHYROXINE SODIUM 112 MCG TAB PO SCH (05:35)
[2016-11-27] MEDS: LEVOTHYROXINE SODIUM 25 MCG TAB PO SCH (05:35)
[2016-11-27 07:42] LABS: INTERNATIONAL NORMALIZED RATIO 1.2 RATIO; PROTHROMBIN TIME - PATIENT 13.7 SEC (9.8-11.6)
[2016-11-27 08:00] VITALS: BP 167/77; PULSE 60; RESP 18; TEMP 96.3; O2SAT 96
[2016-11-27] MEDS: METOPROLOL TARTRATE 25 MG TAB PO SCH (08:15)
--- NOTE | 2016-11-27 10:25 | PD.PROCEDR ---
GI Procedure REFERRING PHYSICIAN Dr. Russo PROCEDURE PERFORMED EGD with biopsy INDICATION FOR PROCEDURE Dysphagia PROCEDURE: The procedure, risks and benefits were discussed with Ms. Alford and informed consent was obtained. Anesthesia sedated her with Diprivan. She was placed in the left lateral decubitus position. EGD: The Pentax videoscope was introduced through the oropharynx and advanced to the second portion of the duodenum under direct visualization. Retroflexion was performed in the stomach. FINDINGS: The esophagus there was distal esophageal mucosal erythema in a streaky fashion consistent with [place] class a esophagitis this was biopsied no obvious strictures were noted the rest of the esophagus was unremarkable The stomach there was mild patchy erythema in the antrum but no ulcerations no erosions no blood or bleeding the rest of the gastric mucosa was unremarkable antral biopsies were taken further evaluation The duodenum this was normal ESTIMATED BLOOD LOSS: None SPECIMENS REMOVED: Gastric and esophageal samples COMPLICATIONS: None IMPRESSION: Reflux esophagitis class a Mild antral gastritis PLAN: Await biopsy Recommend PPI Recommend reflux precautions Jone Caballero MD November 27, 2016 10:25
[2016-11-27] MEDS ORDERED: DO NOT ADM ANY ANTICOAGULANT DRUGS PRN (10:45)
[2016-11-27 10:46] VITALS: BP 134/71; PULSE 62; RESP 18; TEMP 97.5; O2SAT 96
--- NOTE | 2016-11-27 12:44 | HHI.PR ---
Subjective Interval History awake alert and oriented no more complaints pain controlled s/p EGD yesterday anxious for discharge Vitals/Results Intake & Output 11/26/16 11/26/16 11/27/16 14:59 22:59 06:59 Intake Total 1200 ml Balance 1200 ml Intake Oral 1200 ml # Voids 8 4 # Bowel Movements 1 Vital Signs Vital Signs Date Time Temp Pulse Resp B/P Pulse Ox O2 Delivery O2 Flow Rate FiO2 11/27/16 10:46 97.5 62 18 134/71 96 Room Air 11/27/16 10:30 59 18 133/72 94 Room Air 11/27/16 10:19 97.5 63 15 109/62 93 Room Air 11/27/16 08:00 96.3 60 18 167/77 96 11/27/16 04:00 97.6 58 15 134/75 95 11/27/16 00:00 97.5 65 15 135/71 94 11/26/16 20:00 97.8 74 16 152/79 93 11/26/16 16:00 96.6 63 20 167/85 95 CBC/BMP: 11/24/169 11/24/162138 Lab Results Laboratory Tests Test 11/27/16 07:15 Prothrombin Time 13.7 SEC Prothromb Time International 1.2 RATIO Ratio Assessment/Plan Assessment/Plan Physical Exam Physical Exam GENERAL: The patient is alert and oriented lying on bed without any apparent distress. VITAL SIGNS: reviewed HEENT: Head is normocephalic. Negative conjunctival icterus. Mouth unremarkable. There is a no swollen tongue . NECK: Supple. Central trachea. No stridor noted. CHEST: Good air entry. No adventitious sound noted. CVS: S1 and S2 audible. Unable to hear any S3 gallop. GI: Abdomen soft, nontender, no organomegaly. Positive bowel sounds. MUSCULOSKELETAL: No cyanosis or pedal edema appreciated. The patient's right hand and arm in soft cast. SKIN: Warm and dry. STEWARD/STEWARDESS RAILROAD DINING CAR: Alert, oriented, normal facial features, normal speech, normal power and tone of extremities. PSYCHIATRIC: Appropriate mood and affect. Plan A/P Assessment and Plan 1. Hypertensive urgency. 2. Anaphylactic reaction to morphine 3. Right fifth metacarpal fracture status post fall. 4. Hypothyroidism. 5. Hyperlipidemia. PLAN labs reviewed meds reviwed BP better controlled continue increased dose of BB OOB PT eval INR 1.2 roday, LFTS normal complaining of dysphagia , for atleast 2 weeks Appreciate GI input s/P EGD with biopsy;mild gastritis . PPI recommended outpatient follow up with Dr Caballero in 2-3 weeks Continue home medications as needed. Analgesics, Tylenol. Discussed with the patient in detail. ok to d/c home Aleksandra Wheeler MD November 27, 2016 12:44
[2016-11-27] MEDS ORDERED: METO25TA3 PO (12:46)
--- NOTE | 2016-11-27 13:02 | HHI.GIFU ---
Subjective Remarks Pt sitting in bed eating, visiting with friend, asking to go home. No n/v, pain. (Shania Das) Objective Vitals I&O Vital Signs Date Time Temp Pulse Resp B/P Pulse Ox O2 Delivery O2 Flow Rate FiO2 11/27/16 10:46 97.5 62 18 134/71 96 Room Air 11/27/16 10:30 59 18 133/72 94 Room Air 11/27/16 10:19 97.5 63 15 109/62 93 Room Air 11/27/16 08:00 96.3 60 18 167/77 96 11/27/16 04:00 97.6 58 15 134/75 95 11/27/16 00:00 97.5 65 15 135/71 94 11/26/16 20:00 97.8 74 16 152/79 93 11/26/16 16:00 96.6 63 20 167/85 95 I/O 11/26/16 11/26/16 11/26/16 11/27/16 11/27/16 11/27/16 06:59 14:59 22:59 06:59 14:59 22:59 Intake Total 240 ml 1200 ml 150 ml Balance 240 ml 1200 ml 150 ml Intake Oral 240 ml 1200 ml IV Total 50 ml Other 100 ml # Voids 3 8 4 # Bowel Movements 0 1 Laboratory Laboratory Tests Test 11/27/16 07:15 Prothrombin Time 13.7 Prothromb Time International 1.2 Ratio Imaging Last Impressions Shoulder X-Ray 11/24/16 0000 Signed Impressions: Service Date/Time: Thursday, November 24, 2016 15:40 - CONCLUSION: No acute abnormality is seen. There is chronic change at the right clavicle and right 6th rib. The patient has evidence of right medial chest surgery. Doug Orosco MD Hand X-Ray 11/24/16 0000 Signed Impressions: Service Date/Time: Thursday, November 24, 2016 15:32 - CONCLUSION: Suspected acute fracture at the anterior distal aspect of the 5th metacarpal. Doug Orosco MD Elbow X-Ray 11/24/16 0000 Signed Impressions: Service Date/Time: Thursday, November 24, 2016 15:37 - CONCLUSION: Chronic change at the elbow as described above. Doug Orosco MD Physical Exam HEENT: EOMI; normocephalic; atraumatic; no jaundice. CHEST: CTA CARDIAC: RRR ABDOMEN: Soft, nondistended, nontender; no hepatosplenomegaly; bowel sounds are present in all four quadrants. EXTREMITIES: No clubbing, cyanosis, or edema. SKIN: Normal; no rash; no jaundice. ASBESTOS WORKER HELPER: No focal deficits; alert and oriented times three. (Shania Das) Assessment and Plan Plan ASSESSMENT - dysphagia - s/p EGD --> reflux esophagitis class A, mild antral gastritis. onset 2 w ago, trouble swallowing liquids, solids alike. - elevated INR - pt on blood thinners, no known liver issues. LFT pending. PLAN - PPI - antireflux regimen - okay to d/c from GI standpoint This pt seen by myself and Dr Caballero and this note is written on his behalf ( Shania Das) Physician Comments Patient seen and examined Agree with above Continue with current supportive care Monitor labs ok for DC from a GI perspective Follow-up with GI post discharge (Jone Caballero MD) Shania Das November 27, 2016 13:02 Jone Caballero MD November 27, 2016 20:41
[2016-11-27] MEDS ORDERED: PROPOFOL 200 MG/20 ML AMP IV ONE (13:58)
--- NOTE | 2016-11-28 15:15 | HHI.DS ---
Discharge Summary Admission Date November 24, 2016 at 20:59 Discharge Date: November 27, 2016 Admitting Diagnosis Allergic reaction Brief History The patient was a very pleasant 76-year female with significant past medical history of hypertension, hypothyroidism and hyperlipidemia. As per patient, when she was shopping she tripped and fell on outstretched hand. She had pain so she was brought to the ER. She was transitioned from carpet and tile. When she fell down, she started having pain but there is no head trauma, loss of consciousness or blackout. She had no dizziness or presyncope. The patient has no shortness of breath, nausea, vomiting. Had no chest pain or diaphoresis. There was no numbness or tingling sensation. She was brought to the emergency room. CBC/BMP: 11/24/169 11/24/162138 Significant Findings Laboratory Tests Test 11/26/16 11/27/16 09:45 07:15 Prothrombin Time 22.6 SEC 13.7 SEC (9.8-11.6) (9.8-11.6) Imaging Last Impressions Shoulder X-Ray 11/24/16 0000 Signed Impressions: Service Date/Time: Thursday, November 24, 2016 15:40 - CONCLUSION: No acute abnormality is seen. There is chronic change at the right clavicle and right 6th rib. The patient has evidence of right medial chest surgery. Doug Orosco MD Hand X-Ray 11/24/16 0000 Signed Impressions: Service Date/Time: Thursday, November 24, 2016 15:32 - CONCLUSION: Suspected acute fracture at the anterior distal aspect of the 5th metacarpal. Doug Orosco MD Elbow X-Ray 11/24/16 0000 Signed Impressions: Service Date/Time: Thursday, November 24, 2016 15:37 - CONCLUSION: Chronic change at the elbow as described above. Doug Orosco MD PE at Discharge Physical Exam GENERAL: The patient was alert and oriented lying on bed without any apparent distress. VITAL SIGNS: reviewed HEENT: Head was normocephalic. Negative conjunctival icterus. Mouth unremarkable. There was no swollen tongue . NECK: Supple. Central trachea. No stridor noted. CHEST: Good air entry. No adventitious sound noted. CVS: S1 and S2 audible. Unable to hear any S3 gallop. GI: Abdomen soft, nontender, no organomegaly. Positive bowel sounds. MUSCULOSKELETAL: No cyanosis or pedal edema appreciated. The patient's right hand and arm in soft cast. SKIN: Warm and dry. BANK RECONCILIATOR: Alert, oriented, normal facial features, normal speech, normal power and tone of extremities. PSYCHIATRIC: Appropriate mood and affect. Hospital Course In the emergency room, evaluated by the ER physician, found the patient had a fifth metacarpal fracture. During her stay, the patient was found to have high blood pressure in 200s for which she was given some medication, but it was still high. It came down and then came back again. During her stay, the patient was given morphine. After morphine, she was feeling just nervous, nauseous and also feeling swelling in her throat. At that time, ER physician examined her. Her uvula was midline. She was given diphenhydramine 50 mg IV. After discussion with the emergency room physician, Solu-Medrol was given one time. She had no shortness of breath as per ER physician. The patient was examined with the PEDIATRIC RADIOLOGIST. As per the PEDIATRIC RADIOLOGIST, she had swollen tongue at that time. When I saw the patient in the emergency room, she was slightly anxious and she was feeling slightly full in her throat, but it is a lot better than before. She had no difficulty in swallowing. No difficulty in breathing. She had no wheezing. There was no headache or dizziness. She had some ache on movement of the right hand, but there is no other associated symptoms. The patient denied any chest pain, diaphoresis, palpitations. The patient denied any abdominal pain. Patient Had no visual symptom or hearing problem. No headache or dizziness. These are the diagnoses that were used to treat patient during her brief hospital stay and plan a care. 1. Hypertensive urgency. 2. Anaphylactic reaction to morphine 3. Right fifth metacarpal fracture status post fall. 4. Hypothyroidism. 5. Hyperlipidemia. PLAN Patient needed observation stay due to her hypertensive urgency and reaction to morphine. Patient does have a right fifth metacarpal fracture status post her fall, but does not need any invasive intervention for now. She will follow-up with jerica though as needed as an outpatient labs reviewed daily and as needed as well as medications reviewed before exam BP better controlled to first 24 hours. She is to continue with increased dose of beta humble Patient's activity is to be OOB . Physical therapy eval for discharge planning and to treatment regimen Included in patient's lab was checks of her INR 1.2 today, LFTS normal Before hospital stay patient had been complaining of dysphagia , for at least 2 weeks Appreciate GI input and consult. He was decided the patient would need a endoscopy with biopsies Found was mild gastritis . PPI recommended now and as outpatient. outpatient follow up with Dr Caballero in 2-3 weeks Patient's home medications as needed were continued. We also added Analgesics , Tylenol. Discussed with the patient in detail the assessment and plan of care After 72 hours of discharge and being cleared per GI patient was ok to d/c home Pt Condition on Discharge: Stable Discharge Disposition: Discharge Home Discharge Instructions DIET: Follow Instructions for: Heart Healthy Diet, Gastroesophageal Reflux Activities you can perform: Regular-No Restrictions Follow up Referrals: Gastroenterology - 3 Weeks with Jone Caballero MD New Medications: Metoprolol Tartrate (Metoprolol Tartrate) 25 Mg Tab 25 MG PO BID htn Days 30 TAB Continued Medications: Acetaminophen (Acetaminophen Extra Strength) 500 Mg Tab 500 MG PO Q6H PRN PAIN SCALE 1 TO 4 #20 Ref 0 TAB Levothyroxine (Levothyroxine) 137 Mcg Tab 137 MCG PO DAILY Thyroid #30 Ref 0 TAB Simvastatin (Simvastatin) 10 Mg Tab 10 MG PO DAILY Cholesterol Management #30 Ref 0 TAB Discontinued Medications: Metoprolol Tartrate (Metoprolol Tartrate) 25 Mg Tab 25 MG PO DAILY #30 Ref 0 TAB Jazmine Cho November 28, 2016 15:15
== END 2016-11-27 13:59 | disposition home or self-care (01) | DRG 305 ==
LOC: NEPE 15:00 → NEDA 19:42 → OBSVTOIN 20:59 → HIME 21:10 → HOCA 11-25 14:51
PROVIDERS: ADMIT Specialist; ATTEND Specialist
PROC: 0DB68ZX Excision of Stomach, Via Natural or Artificial Opening Endoscopic, Diagnostic (ICD-10-PCS; 2016-11-27)
PROC: 0DB38ZX Excision of Lower Esophagus, Via Natural or Artificial Opening Endoscopic, Diagnostic (ICD-10-PCS; principal; 2016-11-27 09:55)
DX: I16.0 Hypertensive urgency (principal); I69.351 Hemiplegia and hemiparesis following cerebral infarction affecting right dominant side; T88.6XXA Anaphylactic reaction due to adverse effect of correct drug or medicament properly administered, initial encounter; T40.2X5A Adverse effect of other opioids, initial encounter; S62.396A Other fracture of fifth metacarpal bone, right hand, initial encounter for closed fracture; E03.9 Hypothyroidism, unspecified; E78.5 Hyperlipidemia, unspecified; I10 Essential (primary) hypertension; R13.10 Dysphagia, unspecified; K21.0 Gastro-esophageal reflux disease with esophagitis; K29.60 Other gastritis without bleeding; Y92.238 Other place in hospital as the place of occurrence of the external cause; W01.0XXA Fall on same level from slipping, tripping and stumbling without subsequent striking against object, initial encounter; Z87.891 Personal history of nicotine dependence
CPT/HCPCS: 73000; 73030; 73070; 73090; 73120; 80048; 80076; 85027; 85610; 87641; 88305; 88312; 96374; 96375; J0360; J1200; J2270; J2920; J2930; J3430

== ENCOUNTER 2016-11-29 13:22 | Observation (INO) | payer MEDICARE ==
[2016-11-29] VITALS (9 sets, daily range): BP systolic 127–151; BP diastolic 60–73; PULSE 63–72; RESP 16–20; TEMP 97.6–97.7; O2SAT 96–100
[~2016-11-29] VITALS: Ht 170.2 cm; Wt 77.2 kg
[~2016-11-29 13:22] MED LIST changes: +ACET500T36 PO; -WARF-23 PO
[2016-11-29] MEDS ORDERED: SODIUM CHLORIDE 0.9% FLUSH 10 ML FLUSH IVF PRN (13:45)
[2016-11-29 14:20] LABS: AUTOMATED NEUTROPHIL # 4.7 TH/MM3 (1.8-7.7); BASOPHIL % 0.3 % (0.0-2.0); EOSINOPHIL # 0.1 TH/MM3 (0-0.4); EOSINOPHIL % 1.5 % (0.0-4.0); HEMATOCRIT 36.1 % (35.0-46.0); HEMO FLAGS DIFF FINAL; LYMPH % 25.5 % (9.0-44.0); LYMPHOCYTE # 1.9 TH/MM3 (1.0-4.8); MEAN CELL VOLUME 89.4 FL (80.0-100.0); MEAN CORPUSCULAR HEMOGLOBIN 29.2 PG (27.0-34.0); MEAN CORPUSCULAR HGB CONC 32.7 % (32.0-36.0); MONO % 8.7 % (0.0-8.0); PLATELET COUNT 237 TH/MM3 (150-450); RED BLOOD COUNT 4.04 MIL/MM3 (4.00-5.30); RED CELL DISTRIBUTION WIDTH 14.6 % (11.6-17.2); WHITE BLOOD COUNT 7.3 TH/MM3 (4.0-11.0)
[2016-11-29 14:30] LABS: APTT (PATIENT) 25.4 SEC (24.3-30.1); PROTHROMBIN TIME - PATIENT 10.7 SEC (9.8-11.6)
[2016-11-29 14:40] LABS: ALT (GPT) 26 U/L (10-53); ANION GAP 4 MEQ/L (5-15); AST (GOT) 18 U/L (15-37); BICARBONATE 28.6 MEQ/L (21.0-32.0); BLOOD UREA NITROGEN 20 MG/DL (7-18); CHLORIDE 109 MEQ/L (98-107); GLOMERULAR FILTRATION RATE 68 ML/MIN (>89); MAGNESIUM 2.2 MG/DL (1.5-2.5); POTASSIUM 4.3 MEQ/L (3.5-5.1); SODIUM (NA) 142 MEQ/L (136-145)
--- NOTE | 2016-11-29 14:41 | RADRPT ---
EXAM DATE/TIME: 11/29/2016 14:33 [facility] COMPARISON: CT PULMONARY ANGIOGRAM, October 26, 2014, 22:01. CHEST SINGLE AP, July 29, 2014, 1:04. INDICATIONS : Chest pain today. MEDICAL HISTORY : Pulmonary embolism. Brain cancer. Hypertension SURGICAL HISTORY : Craniotomy. ENCOUNTER: Initial ACUITY: 1 day PAIN SCORE: 8/10 LOCATION: Bilateral chest FINDINGS: There is minimal parenchymal opacity at the lateral left lung base. There is no evidence of effusion. The cardiac contours satisfactory. CONCLUSION: Minimal parenchymal opacity at the left lung base Doug Boone MD on November 29, 2016 at 14:37 Board Certified Radiologist. This report was verified electronically.
[2016-11-29 14:43] LABS: ALKALINE PHOSPHATASE 70 U/L (45-117); TOTAL BILIRUBIN ADULT 0.3 MG/DL (0.2-1.0)
[2016-11-29 14:59] LABS: CREATINE KINASE 85 U/L (26-192)
--- NOTE | 2016-11-29 15:18 | PD ---
HPI Chief Complaint: General Weakness Time Seen by Provider: 14:00 Travel History International Travel<30 days: No Contact w/Intl Traveler<30days: No Traveled to known affect area: No History of Present Illness HPI Patient is a 76-year-old female brought in by her friend for evaluation of chest pain. Patient states the pain started approximately 1 hour prior to arrival, with the chest pain patient felt dizzy, diaphoretic, clammy. Friend states that her speech has been worse since she was discharged Saturday. Patient also reports feeling nauseated but has not vomited. 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 Patient states that the pain in her chest as pressure like and intermittent. PFSH Past Medical History Hx Anticoagulant Therapy: Yes (WARFARIN) Cancer: Yes (BRAIN) High Cholesterol: Yes Chemotherapy: No Cerebrovascular Accident: Yes Diabetes: No Diminished Hearing: No Endocrine: No Gastrointestinal Disorders: No Genitourinary: No Hypertension: Yes Implanted Vascular Access Dvce: No Musculoskeletal: No Neurologic: Yes (residual right-sided weakness and slurred speech from CVA 12 years ago) Psychiatric: No Respiratory: No Immunizations Current: Yes Radiation Therapy: No Thyroid Disease: Yes Menopausal: Yes Past Surgical History Abdominal Surgery: No Cardiac Surgery: No Ear Surgery: No Endocrine Surgery: No Eye Surgery: No Genitourinary Surgery: No Gynecologic Surgery: Yes (HYSTERECTOMY) Hysterectomy: Yes Neurologic Surgery: Yes (CRANIOTOMY) Oral Surgery: No Thoracic Surgery: No Tonsillectomy: Yes Other Surgery: Yes Social History Alcohol Use: Yes (RARELY) Tobacco Use: No (quit 12 yrs ago smoked cigs) Substance Use: No Allergies-Medications (Allergen,Severity, Reaction): Coded Allergies: Morphine (Verified Allergy, Mild, 11/29/16) Reported Meds & Prescriptions Reported Meds & Active Scripts Active Metoprolol Tartrate 25 Mg Tab 25 Mg PO BID 30 Days Acetaminophen Extra Strength (Acetaminophen) 500 Mg Tab 500 Mg PO Q6H PRN Reported Levothyroxine (Levothyroxine Sodium) 137 Mcg Tab 137 Mcg PO DAILY Simvastatin 10 Mg Tab 10 Mg PO DAILY Review of Systems Except as stated in HPI: all other systems reviewed are Neg Eyes: No: Blurred Vision HENT: No: Headaches Cardiovascular: Positive: Chest Pain or Discomfort, Diaphoresis Respiratory: No: Shortness of Breath Gastrointestinal: Positive: Nausea, No: Abdominal Pain Genitourinary: No: Dysuria Neurologic: Positive: Dizziness, Change in Mentation, Slurred Speech, No: Headache, Incontinence Physical Exam Narrative GENERAL: Developed, well-nourished, alert female. Resting comfortably in no acute distress. SKIN: Focused skin assessment warm/dry. HEAD: Atraumatic. Normocephalic. EYES: Pupils equal and round. No scleral icterus. No injection or drainage. ENT: No nasal bleeding or discharge. Mucous membranes pink and moist. NECK: Trachea midline. No JVD. CARDIOVASCULAR: Regular rate and rhythm. No murmur appreciated. RESPIRATORY: No accessory muscle use. Clear to auscultation. Breath sounds equal bilaterally. GASTROINTESTINAL: Abdomen soft, non-tender, nondistended. Hepatic and splenic margins not palpable. MUSCULOSKELETAL: No obvious deformities. No clubbing. No cyanosis. No edema. NEUROLOGICAL: Awake and alert. No obvious cranial nerve deficits. Right upper and lower extremity 4/5 muscle strength. Aphasic PSYCHIATRIC: Appropriate mood and affect; insight and judgment normal. Data Data Last Documented VS Vital Signs Date Time Temp Pulse Resp B/P Pulse Ox O2 Delivery O2 Flow Rate FiO2 11/29/16 14:31 71 146/73 141/72 11/29/16 14:30 16 96 Room Air 11/29/16 13:24 97.7 Orders Electrocardiogram (11/29/16 13:44) Ckmb (Isoenzyme) Profile (11/29/16 13:44) Complete Blood Count With Diff (11/29/16 13:44) Comprehensive Metabolic Panel (11/29/16 13:44) Magnesium (Mg) (11/29/16 13:44) Prothrombin Time / Inr (Pt) (11/29/16 13:44) Act Partial Throm Time (Ptt) (11/29/16 13:44) Troponin I (11/29/16 13:44) Lipase (11/29/16 13:44) Chest, Single Ap (11/29/16 13:44) Ecg Monitoring (11/29/16 13:44) Bilateral Bp Monitoring (11/29/16 13:44) Iv Access Insert/Monitor (11/29/16 13:44) Oximetry (11/29/16 13:44) Oxygen Administration (11/29/16 13:44) Sodium Chloride 0.9% Flush (Ns Flush) (11/29/16 13:45) Ct Brain W/O Iv Contrast(Rout) (11/29/16 ) Urinalysis - C+S If Indicated (11/29/16 15:08) Ct Pulmonary Angiogram (11/29/16 15:18) Azithromycin Inj (Zithromax Inj) (11/29/16 16:00) Admit Order (Ed Use Only) (11/29/16 16:39) Labs Laboratory Tests Test 11/29/16 14:00 White Blood Count 7.3 TH/MM3 Red Blood Count 4.04 MIL/MM3 Hemoglobin 11.8 GM/DL Hematocrit 36.1 % Mean Corpuscular Volume 89.4 FL Mean Corpuscular Hemoglobin 29.2 PG Mean Corpuscular Hemoglobin 32.7 % Concent Red Cell Distribution Width 14.6 % Platelet Count 237 TH/MM3 Mean Platelet Volume 8.3 FL Neutrophils (%) (Auto) 64.0 % Lymphocytes (%) (Auto) 25.5 % Monocytes (%) (Auto) 8.7 % Eosinophils (%) (Auto) 1.5 % Basophils (%) (Auto) 0.3 % Neutrophils # (Auto) 4.7 TH/MM3 Lymphocytes # (Auto) 1.9 TH/MM3 Monocytes # (Auto) 0.6 TH/MM3 Eosinophils # (Auto) 0.1 TH/MM3 Basophils # (Auto) 0.0 TH/MM3 CBC Comment DIFF FINAL Differential Comment Prothrombin Time 10.7 SEC Prothromb Time International 1.0 RATIO Ratio Activated Partial 25.4 SEC Thromboplast Time Sodium Level 142 MEQ/L Potassium Level 4.3 MEQ/L Chloride Level 109 MEQ/L Carbon Dioxide Level 28.6 MEQ/L Anion Gap 4 MEQ/L Blood Urea Nitrogen 20 MG/DL Creatinine 0.82 MG/DL Estimat Glomerular Filtration 68 ML/MIN Rate Random Glucose 111 MG/DL Calcium Level 8.8 MG/DL Magnesium Level 2.2 MG/DL Total Bilirubin 0.3 MG/DL Aspartate Amino Transf 18 U/L (AST/SGOT) Alanine Aminotransferase 26 U/L (ALT/SGPT) Alkaline Phosphatase 70 U/L Total Creatine Kinase 85 U/L Troponin I LESS THAN 0.02 NG/ML Total Protein 7.1 GM/DL Albumin 3.4 GM/DL Lipase 149 U/L [facility] Medical Decision Making Medical Screen Exam Complete: Yes Emergency Medical Condition: Yes Medical Record Reviewed: Yes Interpretation(s) Last Impressions Chest X-Ray 11/29/16 1344 Signed Impressions: Service Date/Time: November 14:33 - CONCLUSION: Minimal parenchymal opacity at the left lung base Doug Boone MD Head CT 11/29/16 0000 Signed Impressions: Service Date/Time: November 14:56 - CONCLUSION: 1. Remote left frontal and temporal lobe infarcts and left basal ganglia infarct. No acute findings compared with November 03. Kody Maddox MD Laboratory Tests Test 11/29/16 14:00 White Blood Count 7.3 TH/MM3 Red Blood Count 4.04 MIL/MM3 Hemoglobin 11.8 GM/DL Hematocrit 36.1 % Mean Corpuscular Volume 89.4 FL Mean Corpuscular Hemoglobin 29.2 PG Mean Corpuscular Hemoglobin 32.7 % Concent Red Cell Distribution Width 14.6 % Platelet Count 237 TH/MM3 Mean Platelet Volume 8.3 FL Neutrophils (%) (Auto) 64.0 % Lymphocytes (%) (Auto) 25.5 % Monocytes (%) (Auto) 8.7 % Eosinophils (%) (Auto) 1.5 % Basophils (%) (Auto) 0.3 % Neutrophils # (Auto) 4.7 TH/MM3 Lymphocytes # (Auto) 1.9 TH/MM3 Monocytes # (Auto) 0.6 TH/MM3 Eosinophils # (Auto) 0.1 TH/MM3 Basophils # (Auto) 0.0 TH/MM3 CBC Comment DIFF FINAL Differential Comment Prothrombin Time 10.7 SEC Prothromb Time International 1.0 RATIO Ratio Activated Partial 25.4 SEC Thromboplast Time Sodium Level 142 MEQ/L Potassium Level 4.3 MEQ/L Chloride Level 109 MEQ/L Carbon Dioxide Level 28.6 MEQ/L Anion Gap 4 MEQ/L Blood Urea Nitrogen 20 MG/DL Creatinine 0.82 MG/DL Estimat Glomerular Filtration 68 ML/MIN Rate Random Glucose 111 MG/DL Calcium Level 8.8 MG/DL Magnesium Level 2.2 MG/DL Total Bilirubin 0.3 MG/DL Aspartate Amino Transf 18 U/L (AST/SGOT) Alanine Aminotransferase 26 U/L (ALT/SGPT) Alkaline Phosphatase 70 U/L Total Creatine Kinase 85 U/L Troponin I LESS THAN 0.02 NG/ML Total Protein 7.1 GM/DL Albumin 3.4 GM/DL Lipase 149 U/L Vital Signs Date Time Temp Pulse Resp B/P Pulse Ox O2 Delivery O2 Flow Rate FiO2 11/29/16 14:31 71 146/73 141/72 11/29/16 14:30 68 16 146/73 96 Room Air 141/72 11/29/16 13:57 97 Room Air 11/29/16 13:55 97 Room Air 11/29/16 13:52 96 Room Air 11/29/16 13:46 66 20 140/60 96 11/29/16 13:24 97.7 72 20 127/64 96 Room Air Differential Diagnosis Acute coronary syndrome versus pulmonary embolism versus pneumonia versus vertigo versus TIA versus CVA Narrative Course Patient is a 76-year-old female presenting to emergency for evaluation of a near syncopal episode and chest pain. Patient has residual effects of a CVA including expressive aphasia and right-sided weakness. Friend was at bedside and states that since Saturday her speech has been worse. Labs and imaging ordered and pending, IV access established, patient placed on telemetry monitoring and continuous pulse oximetry. Chest x-ray shows minimal parenchymal opacity at the base of the left lung. IV azithromycin ordered. CT scan of the brain is negative for acute abnormality, it does note old infarcts. CBC is unremarkable Chemistry is unremarkable Troponin is less than 0.02 Coags are unremarkable Patient currently lives alone, she has recent history of falls resulting in a right wrist fracture. Due to the near syncopal episode, chest pain and neuro symptoms, his past medical history this recommended at this time to keep patient in observation to continue to trend her enzymes and monitor for any further neurological deficits. Diagnosis Primary Impression: Near syncope Additional Impressions: Neurological symptoms Pneumonia Qualified Code: J18.1 - Pneumonia of left lower lobe due to infectious organism Admitting Information Admitting Physician Requests: Observation Condition: Stable Barbara Rivera November 29, 2016 15:18
--- NOTE | 2016-11-29 15:48 | RADRPT ---
EXAM DATE/TIME: 11/29/2016 14:56 [facility] COMPARISON: CT BRAIN W/O CONTRAST, November 03, 2016, 14:37. INDICATIONS : Dizziness. RADIATION DOSE: 38.90 CTDIvol (mGy) MEDICAL HISTORY : Cerebrovascular disease. Cardiovascular disease Hypertension. SURGICAL HISTORY : Craniotomy. ENCOUNTER: Initial ACUITY: 1 day PAIN SCALE: 0/10 LOCATION: cranial TECHNIQUE: Multiple contiguous axial images were obtained of the head. Using automated exposure control and adj ustment of the mA and/or kV according to patient size, radiation dose was kept as low as reasonably a chievable to obtain optimal diagnostic quality images. FINDINGS: There is a remote infarct the left frontal lobe and left temporal lobe stable since November 03. No mass , hemorrhage or midline shift. No hydrocephalus. Also remote lacunar infarct left basal ganglia. Vent ricular size is stable. Cavum septum pellucidum. Retention cyst in the right maxillary sinus. CONCLUSION: 1. Remote left frontal and temporal lobe infarcts and left basal ganglia infarct. No acute findings c ompared with November 03. Kody Maddox MD on November 29, 2016 at 15:44 Board Certified Radiologist. This report was verified electronically.
[2016-11-29] MEDS ORDERED: AZITHROMYCIN INJ 500 MG in SODIUM CHLOR 0.9% 250 ML INJ 250 ML IV ONE (16:00)
[2016-11-29] MEDS ORDERED: IOHEXOL 350 MG/ML 10 ML VIAL (for RAD DIAG) IV ONE (16:43)
--- NOTE | 2016-11-29 16:55 | RADRPT ---
EXAM DATE/TIME: 11/29/2016 16:35 [facility] COMPARISON: No previous studies available for comparison. INDICATIONS : Chest pain and dizziness today. IV CONTRAST: 75 cc Omnipaque 350 (iohexol) IV RADIATION DOSE: 23.19 CTDIvol (mGy) MEDICAL HISTORY : Stroke. Hypertension. SURGICAL HISTORY : Hysterectomy. Craniotomy. ENCOUNTER: Initial ACUITY: 1 day PAIN SCALE: 6/10 LOCATION: substernal chest TECHNIQUE: Volumetric scanning of the chest was performed using a pulmonary embolism protocol MIP images were re constructed. Using automated exposure control and adjustment of the mA and/or kV according to patien t size, radiation dose was kept as low as reasonably achievable to obtain optimal diagnostic quality images. FINDINGS: No filling defects to suggest pulmonary embolic disease. No lung consolidation. Minimal dependent ate lectasis and scarring. No pleural or pericardial effusion. No adenopathy. Moderate coronary calcifica tions. No acute findings in the upper abdomen. Bilateral breast implants with intracapsular ruptures. CONCLUSION: 1. Negative for pulmonary embolus. 2. Moderate coronary calcifications. Kody Maddox MD on November 29, 2016 at 16:50 Board Certified Radiologist. This report was verified electronically.
[2016-11-29] MEDS ORDERED: MAGNESIUM HYDROXIDE SUSP 30 ML CUP PO PRN (17:30)
[2016-11-29] MEDS ORDERED: LACTULOSE SYRUP 20 GM/30 ML CUP PO PRN (17:30)
[2016-11-29] MEDS ORDERED: ACETAMINOPHEN 325 MG TAB PO PRN (17:30)
[2016-11-29] MEDS ORDERED: BISACODYL 10 MG SUPP RECTAL PRN (17:30)
[2016-11-29] MEDS ORDERED: NALOXONE HCL 0.4 MG/ML AMP IV PRN (17:30)
[2016-11-29] MEDS ORDERED: SODIUM CHLORIDE 0.9% FLUSH 10 ML FLUSH IV FLUSH PRN (17:30)
[2016-11-29] MEDS ORDERED: ONDANSETRON HCL 4 MG/2 ML VIAL IVP PRN (17:30)
[2016-11-29] MEDS ORDERED: SENNOSIDES 8.6 MG TAB PO PRN (17:30)
--- NOTE | 2016-11-29 17:40 | PD ---
Physical Exam Narrative GENERAL: Well-nourished, well-developed patient. SKIN: Warm and dry. HEAD: Normocephalic and atraumatic. EYES: No injection or drainage. ENT: No nasal drainage noted. NECK: Supple, trachea midline. CARDIOVASCULAR: Regular rate and rhythm RESPIRATORY: no increased effort. No accessory muscle use. NEUROLOGICAL: Awake. Moves all extremities, clear speech but slow to respond Data Data Last Documented VS Vital Signs Date Time Temp Pulse Resp B/P Pulse Ox O2 Delivery O2 Flow Rate FiO2 11/29/16 14:31 71 146/73 141/72 11/29/16 14:30 16 96 Room Air 11/29/16 13:24 97.7 Orders Electrocardiogram (11/29/16 13:44) Ckmb (Isoenzyme) Profile (11/29/16 13:44) Complete Blood Count With Diff (11/29/16 13:44) Comprehensive Metabolic Panel (11/29/16 13:44) Magnesium (Mg) (11/29/16 13:44) Prothrombin Time / Inr (Pt) (11/29/16 13:44) Act Partial Throm Time (Ptt) (11/29/16 13:44) Troponin I (11/29/16 13:44) Lipase (11/29/16 13:44) Chest, Single Ap (11/29/16 13:44) Ecg Monitoring (11/29/16 13:44) Bilateral Bp Monitoring (11/29/16 13:44) Iv Access Insert/Monitor (11/29/16 13:44) Oximetry (11/29/16 13:44) Oxygen Administration (11/29/16 13:44) Sodium Chloride 0.9% Flush (Ns Flush) (11/29/16 13:45) Ct Brain W/O Iv Contrast(Rout) (11/29/16 ) Urinalysis - C+S If Indicated (11/29/16 15:08) Ct Pulmonary Angiogram (11/29/16 15:18) Azithromycin Inj (Zithromax Inj) (11/29/16 16:00) Admit Order (Ed Use Only) (11/29/16 16:39) Labs Laboratory Tests Test 11/29/16 14:00 White Blood Count 7.3 TH/MM3 Red Blood Count 4.04 MIL/MM3 Hemoglobin 11.8 GM/DL Hematocrit 36.1 % Mean Corpuscular Volume 89.4 FL Mean Corpuscular Hemoglobin 29.2 PG Mean Corpuscular Hemoglobin 32.7 % Concent Red Cell Distribution Width 14.6 % Platelet Count 237 TH/MM3 Mean Platelet Volume 8.3 FL Neutrophils (%) (Auto) 64.0 % Lymphocytes (%) (Auto) 25.5 % Monocytes (%) (Auto) 8.7 % Eosinophils (%) (Auto) 1.5 % Basophils (%) (Auto) 0.3 % Neutrophils # (Auto) 4.7 TH/MM3 Lymphocytes # (Auto) 1.9 TH/MM3 Monocytes # (Auto) 0.6 TH/MM3 Eosinophils # (Auto) 0.1 TH/MM3 Basophils # (Auto) 0.0 TH/MM3 CBC Comment DIFF FINAL Differential Comment Prothrombin Time 10.7 SEC Prothromb Time International 1.0 RATIO Ratio Activated Partial 25.4 SEC Thromboplast Time Sodium Level 142 MEQ/L Potassium Level 4.3 MEQ/L Chloride Level 109 MEQ/L Carbon Dioxide Level 28.6 MEQ/L Anion Gap 4 MEQ/L Blood Urea Nitrogen 20 MG/DL Creatinine 0.82 MG/DL Estimat Glomerular Filtration 68 ML/MIN Rate Random Glucose 111 MG/DL Calcium Level 8.8 MG/DL Magnesium Level 2.2 MG/DL Total Bilirubin 0.3 MG/DL Aspartate Amino Transf 18 U/L (AST/SGOT) Alanine Aminotransferase 26 U/L (ALT/SGPT) Alkaline Phosphatase 70 U/L Total Creatine Kinase 85 U/L Troponin I LESS THAN 0.02 NG/ML Total Protein 7.1 GM/DL Albumin 3.4 GM/DL Lipase 149 U/L [facility] Supervised Visit with JOSE: Yes Interpretation(s) CBC & BMP Diagram 11/29/16 14:00 Last [address] Angiography 11/29/16 1518 Draft Impressions: Service Date/Time: November 16:35 - CONCLUSION: 1. Negative for pulmonary embolus. 2. Moderate coronary calcifications. Kody Maddox MD Chest X-Ray 11/29/16 1344 Signed Impressions: Service Date/Time: November 14:33 - CONCLUSION: Minimal parenchymal opacity at the left lung base Doug Boone MD Head CT 11/29/16 0000 Signed Impressions: Service Date/Time: November 14:56 - CONCLUSION: 1. Remote left frontal and temporal lobe infarcts and left basal ganglia infarct. No acute findings compared with November 03. Kody Maddox MD Narrative Course I, Dr. velez, have reviewed the advance practice practitioner's documentation and am in agreement, met with the patient face to face, made the diagnosis, and the medical decision making was done by me. *My assessment and Findings: 76-year-old female presents with chest pain and shortness of breath with intermittent difficulty coming up with words. Initial testing including CT chest and head without emergent process. She agrees to admission for further workup. Diagnosis Primary Impression: Chest pain Qualified Code: R07.9 - Chest pain, unspecified type Additional Impressions: Neurological symptoms Pneumonia Qualified Code: J18.1 - Pneumonia of left lower lobe due to infectious organism Condition: Stable Kiara Velez MD November 29, 2016 17:40
[2016-11-29 18:41] LABS: BLOOD, URINE MOD (NEG); COMMENT (UR) CULT NOT INDICATED; CULTURE IF INDICATED CULT NOT INDICATED; GLUCOSE,URINE NEG (NEG); KETONE, URINE NEG (NEG); MUCUS URINE FEW /lpf (OCC); NITRITE,URINE NEG (NEG); SQUAMOUS EPITHELIAL CELL URINE 1 /hpf (0-5); URINE COLOR YELLOW (YELLW/STRAW)
[2016-11-29] MEDS: SODIUM CHLOR 0.9% 1000 ML INJ 1,000 ML IV SCH ×2 (18:48→21:09)
[2016-11-29 20:53] LABS: CREATINE KINASE 74 U/L (26-192)
[2016-11-29] MEDS: DOCUSATE SODIUM 50 MG/SENNA 8.6 MG TAB PO SCH (21:00)
[2016-11-29] MEDS: METOPROLOL TARTRATE 25 MG TAB PO SCH (21:06)
[2016-11-29] MEDS: SODIUM CHLORIDE 0.9% FLUSH 10 ML FLUSH IV FLUSH SCH (21:07)
--- NOTE | 2016-11-29 23:59 | MH ---
cc: JUANITA KENYON MD DATE OF ADMISSION 11/29/2016 Patient was seen at 22:00 CHIEF COMPLAINT Chest discomfort. HISTORY OF PRESENT ILLNESS This is a pleasant 76-year-old female who was states when she was walking her dog today after about 10 minutes she developed a squeezing chest discomfort in her upper chest and in her neck. She felt short of breath. She felt some nausea. She did not vomit. She was not having palpitations. She was not having fever or chills or cough and she felt a little bit better at rest. She also felt a little dizzy and diaphoretic. She stopped at a neighbor's house. Her voice felt a little bit weak as well. It did not resolve on its own. She ended up coming into the emergency room. Initial work-up was essentially negative. There was a question of a left base opacity. She was started on zithromax. The pressure resolved and currently she has no chest pain. She states that the worst was an 8 out of 10, now it is a 0 out of 10. She has never had pain like this before. She has no known cardiac history other than hypertension, hyperlipidemia. She has had a stroke and a PE in the past. MEDICATIONS Upon admission, please see the chart. ALLERGIES MORPHINE. PAST MEDICAL HISTORY Significant for a left sided stroke with right sided deficits which is mild. A Schwannoma with a craniotomy. Hyperlipidemia, hypertension. Hypothyroidism. A PE two years ago status post two years of Coumadin, currently off of anticoagulation. PAST SURGICAL HISTORY Hysterectomy, craniotomy with surgical excision of a mass done in [place] about 12 years ago and a tonsillectomy. SOCIAL HISTORY Quit smoking roughly 20 years ago. Denies drugs. No recent alcohol. REVIEW OF SYSTEMS The patient has chronic right sided weakness from her stroke which was about 12 years ago. She does not like using a cane. She feels like her memory is not the best. She has some difficulty remembering some of her medical diagnosis. Her speech is a little bit slow, this is chronic. She was in the hospital from 11/24 till 11/27/16 after a fall with a right fifth metacarpal fracture which is being treated nonsurgically at this point. She also had hypertensive urgency on admission. Her blood pressure was brought under reasonable control and she was released. She states she felt well on the and did not have the pain till the 25th. 10 point review of systems no other pertinent findings. PHYSICAL EXAMINATION VITAL SIGNS: Temperature she is afebrile. Heart rate 63. Respirations 16. Blood pressure 140/65. GENERAL: In general this is a 76-year-old female resting comfortably in bed. During the interview she felt more comfortable standing and stood for the latter half of the interview and examination. She was in no distress. HEENT: No jaundice. Mucous membranes are moist. NECK: Supple. CARDIOVASCULAR: Regular rate and rhythm. RESPIRATORY: Unlabored breathing. Clear to auscultation bilaterally. GASTROINTESTINAL: Bowel sounds are present. No tenderness, guarding or rebound. : No CVA tenderness. No suprapubic tenderness. MUSCULOSKELETAL: No edema. ___ negative. Right hand is in a splint from the 4th and 5th fingers up to the mid forearm. NEUROLOGIC: The patient is awake, alert and oriented. Speech is slightly slow but easily understood. EXTREMITIES: Her right upper extremity strength is 4/5. Gait and station was observed in the room, the patient leans to the right slightly because of the right lower extremity weakness. She was able to ambulate down the lobo without assistance or a cane. PSYCHIATRIC: The patient is appropriate and appears to have normal judgment. INVESTIGATIONS Thus far, imaging studies CT of the brain remote left frontal and temporal lobe infarct, left basilar ganglia infarct. No acute findings. Chest x-ray minimal parenchymal opacity at the left lung base. CT angiography negative for pulmonary embolus. Moderate coronary calcifications. LABORATORY DATA White count 7.3, hemoglobin 11.8, platelets are at 237. INR Is 1. Sodium 142, potassium 4.3, BUN 20, creatinine 0.82, glucose 118. Troponin is 0.02, repeat was 0.02. LFTs are normal. Ammonia level less than 10. TSH is 0.042. Lipase 149. Random cortisol is at 4. Urinanalysis specific gravity is greater than 1.035, blood is moderate, leukoesterace is negative. Culture is not indicated. EKG showed sinus rhythm, right bundle branch block. IMPRESSION 1. Chest discomfort. 2. Recent right hand fracture. 3. Hypertension. 4. Hyperlipidemia. 5. History of PE status post approximately 2 years of anticoagulation. 6. Coronary calcifications noted on CT angiography of the chest. 7. Right bundle branch block. 8. History of a left sided stroke with mild right sided deficits. 9. 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 10. Recent EGD showing reflux esophagitis and mild antral gastritis. DISCUSSION The patient is placed in observation status to Dr. Kenyon's service. The plan is to rule out for an acute myocardial infarction. She has had two negative troponins. EKG appears to be stable. Repeat EKG and troponin are pending. She will be started on low dose of aspirin as well as a DVT prophylaxis. Proton pump inhibitor will be given for GI prophylaxis. Her home medications will be resumed. She has been started on antibiotics for a possible pneumonia. Will check her procalcitonin level as she is currently not exhibiting any specific symptoms for pneumonia and make further recommendations about antibiotic treatment depending on how she does. Anticipated length of stay is less than 2 days. Anticipate discharge to home. Dictated by: Doug Gerardo physician traffic assistant MD JURGEN Bess/GOKUL /10:49 PM /11:13 PM
[2016-11-30] MEDS: ASPIRIN EC 81 MG TABEC PO SCH ×2 (00:05→08:42)
[2016-11-30] MEDS: ENOXAPARIN SODIUM 40 MG/0.4 ML SYRINGE SQ SCH ×2 (00:05→21:51)
[2016-11-30] MEDS: PANTOPRAZOLE SOD 40 MG DELAYED RELEASE TAB PO SCH ×2 (00:05→08:41)
[2016-11-30 02:54] LABS: CREATINE KINASE 76 U/L (26-192)
[2016-11-30] MEDS: LEVOTHYROXINE SODIUM 25 MCG TAB PO SCH (06:11)
[2016-11-30] MEDS: LEVOTHYROXINE SODIUM 112 MCG TAB PO SCH (06:11)
[2016-11-30 07:31] VITALS: BP 162/76; PULSE 68; RESP 18; TEMP 97.5; O2SAT 98
[2016-11-30] MEDS: METOPROLOL TARTRATE 25 MG TAB PO SCH ×2 (08:42→21:52)
[2016-11-30] MEDS: DOCUSATE SODIUM 50 MG/SENNA 8.6 MG TAB PO SCH ×2 (08:42→21:51)
[2016-11-30] MEDS: PRAVASTATIN SOD 20 MG TAB PO SCH (08:42)
[2016-11-30] MEDS: SODIUM CHLORIDE 0.9% FLUSH 10 ML FLUSH IV FLUSH SCH ×2 (08:42→21:00)
[2016-11-30] MEDS ORDERED: NON-FORMULARY DRUG (Simvastatin 10 MG) PO SCH (09:00)
[2016-11-30] MEDS ORDERED: NON-FORMULARY DRUG (Levothyroxine 137 MCG) PO SCH (09:00)
[2016-11-30 10:39] LABS: AUTOMATED NEUTROPHIL # 3.8 TH/MM3 (1.8-7.7); BASOPHIL % 0.5 % (0.0-2.0); EOSINOPHIL # 0.1 TH/MM3 (0-0.4); EOSINOPHIL % 1.5 % (0.0-4.0); HEMATOCRIT 36.4 % (35.0-46.0); HEMO FLAGS DIFF FINAL; LYMPH % 27.3 % (9.0-44.0); LYMPHOCYTE # 1.7 TH/MM3 (1.0-4.8); MEAN CELL VOLUME 88.2 FL (80.0-100.0); MEAN CORPUSCULAR HEMOGLOBIN 30.1 PG (27.0-34.0); MEAN CORPUSCULAR HGB CONC 34.2 % (32.0-36.0); MONO % 7.3 % (0.0-8.0); NEUT % 63.4 % (16.0-70.0); PLATELET COUNT 242 TH/MM3 (150-450); RED BLOOD COUNT 4.13 MIL/MM3 (4.00-5.30); RED CELL DISTRIBUTION WIDTH 14.6 % (11.6-17.2); WHITE BLOOD COUNT 6.1 TH/MM3 (4.0-11.0)
[2016-11-30 11:13] LABS: POTASSIUM 5.4 MEQ/L (3.5-5.1)
--- NOTE | 2016-11-30 12:07 | HHI.PR ---
Vitals/Results Vital Signs Vital Signs Date Time Temp Pulse Resp B/P Pulse Ox O2 Delivery O2 Flow Rate FiO2 11/30/16 07:31 97.5 68 18 162/76 98 11/29/16 21:00 63 11/29/16 20:41 97.6 63 16 140/65 11/29/16 18:48 65 18 151/70 100 11/29/16 17:25 64 18 151/70 98 Room Air 11/29/16 14:31 71 146/73 141/72 11/29/16 14:30 68 16 146/73 96 Room Air 141/72 11/29/16 13:57 97 Room Air 11/29/16 13:55 97 Room Air 11/29/16 13:52 96 Room Air 11/29/16 13:46 66 20 140/60 96 11/29/16 13:24 97.7 72 20 127/64 96 Room Air CBC/BMP: 11/30/16 1016 11/30/16 1016 Lab Results Laboratory Tests Test 11/29/16 11/29/16 11/29/16 11/30/16 14:00 18:30 19:40 02:20 White Blood Count 7.3 TH/MM3 Red Blood Count 4.04 MIL/MM3 Hemoglobin 11.8 GM/DL Hematocrit 36.1 % Mean Corpuscular Volume 89.4 FL Mean Corpuscular Hemoglobin 29.2 PG Mean Corpuscular Hemoglobin 32.7 % Concent Red Cell Distribution Width 14.6 % Platelet Count 237 TH/MM3 Mean Platelet Volume 8.3 FL Neutrophils (%) (Auto) 64.0 % Lymphocytes (%) (Auto) 25.5 % Monocytes (%) (Auto) 8.7 % Eosinophils (%) (Auto) 1.5 % Basophils (%) (Auto) 0.3 % Neutrophils # (Auto) 4.7 TH/MM3 Lymphocytes # (Auto) 1.9 TH/MM3 Monocytes # (Auto) 0.6 TH/MM3 Eosinophils # (Auto) 0.1 TH/MM3 Basophils # (Auto) 0.0 TH/MM3 CBC Comment DIFF FINAL Differential Comment Prothrombin Time 10.7 SEC Prothromb Time International 1.0 RATIO Ratio Activated Partial 25.4 SEC Thromboplast Time Sodium Level 142 MEQ/L Potassium Level 4.3 MEQ/L Chloride Level 109 MEQ/L Carbon Dioxide Level 28.6 MEQ/L Anion Gap 4 MEQ/L Blood Urea Nitrogen 20 MG/DL Creatinine 0.82 MG/DL Estimat Glomerular Filtration 68 ML/MIN Rate Random Glucose 111 MG/DL Calcium Level 8.8 MG/DL Magnesium Level 2.2 MG/DL Total Bilirubin 0.3 MG/DL Aspartate Amino Transf 18 U/L (AST/SGOT) Alanine Aminotransferase 26 U/L (ALT/SGPT) Alkaline Phosphatase 70 U/L Total Creatine Kinase 85 U/L 74 U/L 76 U/L Troponin I LESS THAN 0.02 LESS THAN 0.02 LESS THAN 0.02 NG/ML NG/ML NG/ML Total Protein 7.1 GM/DL Albumin 3.4 GM/DL Lipase 149 U/L Urine Color YELLOW Urine Turbidity CLEAR Urine pH 7.0 Urine Specific [place] GREATER THAN 1.035 Urine Protein TRACE mg/dL Urine Glucose (UA) NEG mg/dL Urine Ketones NEG mg/dL Urine Occult Blood MOD Urine Nitrite NEG Urine Bilirubin NEG Urine Urobilinogen LESS THAN 2.0 MG/DL Urine Leukocyte Esterase NEG Urine RBC 8 /hpf Urine WBC 5 /hpf Urine Squamous Epithelial 1 /hpf Cells Urine Mucus FEW /lpf Microscopic Urinalysis Comment CULT NOT INDICATED Ammonia LESS THAN 10 MCMOL/L Thyroid Stimulating Hormone 0.042 uIU/ML 3rd Gen Random Cortisol 4.0 MCG/DL Procalcitonin LESS THAN 0.05 ng/mL Test 11/30/16 10:16 White Blood Count 6.1 TH/MM3 Red Blood Count 4.13 MIL/MM3 Hemoglobin 12.4 GM/DL Hematocrit 36.4 % Mean Corpuscular Volume 88.2 FL Mean Corpuscular Hemoglobin 30.1 PG Mean Corpuscular Hemoglobin 34.2 % Concent Red Cell Distribution Width 14.6 % Platelet Count 242 TH/MM3 Mean Platelet Volume 8.7 FL Neutrophils (%) (Auto) 63.4 % Lymphocytes (%) (Auto) 27.3 % Monocytes (%) (Auto) 7.3 % Eosinophils (%) (Auto) 1.5 % Basophils (%) (Auto) 0.5 % Neutrophils # (Auto) 3.8 TH/MM3 Lymphocytes # (Auto) 1.7 TH/MM3 Monocytes # (Auto) 0.4 TH/MM3 Eosinophils # (Auto) 0.1 TH/MM3 Basophils # (Auto) 0.0 TH/MM3 CBC Comment DIFF FINAL Differential Comment Hematology Comments Sodium Level 140 MEQ/L Potassium Level 5.4 MEQ/L Chloride Level 107 MEQ/L Carbon Dioxide Level 26.0 MEQ/L Anion Gap 7 MEQ/L Blood Urea Nitrogen 14 MG/DL Creatinine 0.74 MG/DL Estimat Glomerular Filtration 77 ML/MIN Rate Random Glucose 87 MG/DL Calcium Level 9.0 MG/DL Assessment/Plan Assessment/Plan PHYSICAL EXAMINATION GENERAL:AWAKE , ALERT AND ORIENTED. resting comfortably in bed. no distress. HEENT: No jaundice. Mucous membranes are moist. NECK: Supple. CARDIOVASCULAR: Regular rate and rhythm. RESPIRATORY: Unlabored breathing. Clear to auscultation bilaterally. GASTROINTESTINAL: Bowel sounds are present. No tenderness, guarding or rebound. : No CVA tenderness. No suprapubic tenderness. MUSCULOSKELETAL: No edema. Right hand is in a splint from the 4th and 5th fingers up to the mid forearm. NEUROLOGIC: The patient is awake, alert and oriented. Speech is slightly slow but easily understood. EXTREMITIES: Her right upper extremity strength is 4/5. Gait and station was observed in the room, the patient leans to the right slightly because of the right lower extremity weakness. She was able to ambulate down the lobo without assistance or a cane. PSYCHIATRIC: The patient is appropriate and appears to have normal judgment. IMPRESSION 1. Chest discomfort. 2. Recent right hand fracture. 3. Hypertension uncontrolled 4. Hyperlipidemia. 5. History of PE status post approximately 2 years of anticoagulation. 6. Coronary calcifications noted on CT angiography of the chest. 7. Right bundle branch block. 8. History of a left sided stroke with mild right sided deficits. 9. 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 10. Recent EGD showing reflux esophagitis and mild antral gastritis. DISCUSSION observation status to Dr. Wheeler's service. no more chest pain troponin neg , EKG noted last stress test in [address] mccollum, neg for ischemia consult cardiology low dose ASA Increase BB with holding parameters azithromycin hyperkalemia, monitor, recheck in am recent gastritis, start PPI home meds resumed plan of care discussed with patient, nursing staff Aleksandra Wheeler MD November 30, 2016 12:07
[2016-11-30 12:21] VITALS: BP 159/73; PULSE 59; RESP 18; TEMP 97.7; O2SAT 97
--- NOTE | 2016-11-30 14:27 | EKG ---
Date Performed: 11/29/2016 Time Performed: 13:48:15 PTAGE: 76 years EKG: Sinus rhythm RIGHT BUNDLE BRANCH BLOCK ABNORMAL ECG Compared to prior tracing no significant change PREVIOUS TRACING : 10/26/2014 20.44 DOCTOR: Per Roca Interpretating Date/Time 11/30/2016 14:22:45
--- NOTE | 2016-11-30 14:27 | EKG ---
Date Performed: 11/29/2016 Time Performed: 19:49:26 PTAGE: 76 years EKG: Sinus rhythm RIGHT BUNDLE BRANCH BLOCK ABNORMAL ECG NO PREVIOUS TRACING DOCTOR: Per Roca Interpretating Date/Time 11/30/2016 14:22:37
--- NOTE | 2016-11-30 14:27 | EKG ---
Date Performed: 11/30/2016 Time Performed: 02:08:41 PTAGE: 76 years EKG: Sinus rhythm RIGHT BUNDLE BRANCH BLOCK ABNORMAL ECG Compared to prior tracing no significant change PREVIOUS TRACING : 11/30/2016 02.07 DOCTOR: Per Roca Interpretating Date/Time 11/30/2016 14:22:31
[2016-11-30] MEDS: SODIUM CHLOR 0.9% 1000 ML INJ 1,000 ML IV SCH (15:01)
--- NOTE | 2016-11-30 15:23 | MB ---
cc: RUSSELL FERRARA M.D. DATE OF CONSULTATION: 11/30/2016. REASON FOR CONSULTATION: Chest pain. HISTORY OF PRESENT ILLNESS: The patient is a 76-year-old white female with a history of brain cancer, hypertension, pulmonary embolism, CVA, hypothyroidism who was brought to the hospital with complaints of chest discomfort and nausea. The patient states for the past three weeks she has had intermittent episodes of substernal chest pressure, often associated with nausea. The chest discomfort lasts in a constant fashion most of the day. It has waxed and waned in severity at times. The patient has not been able to identify any exacerbating or relieving factors for the chest pain. She denies pleurisy, dizziness, syncope, near-syncope, palpitations, paroxysmal nocturnal dyspnea. She also reports no change in chronic intermittent dependent edema. PAST MEDICAL HISTORY: 1. Hypothyroidism. 2. CVA approximately 2003. 3. Small low left lower lobe pulmonary embolism October of 2014. 5. Brain cancer status post craniotomy and resection approximately 12 years ago. 6. Hypertension 7. Hyperlipidemia. PAST SURGICAL HISTORY: 1. Hysterectomy. 2. Craniotomy. 3. Tonsillectomy. CARDIAC MEDICATIONS AT HOME: Her cardiac medications at home: 1. Simvastatin 10 milligrams at bedtime. 2. Metoprolol 25 milligrams twice a day. ALLERGIES: NO KNOWN DRUG ALLERGIES. FAMILY HISTORY: There is no significant family history of early myocardial infarction. SOCIAL HISTORY: The patient quit smoking more than 10 years ago. She denies alcohol or drug abuse. REVIEW OF SYSTEMS: Review of systems as in the history of present illness and otherwise negative or noncontributory. She also denies visual changes, abdominal pain, melena, dyspepsia, bright red blood per rectum. PHYSICAL EXAMINATION: VITAL SIGNS: On physical examination blood pressure 159/73 with a pulse of 59, respirations 18. GENERAL: In general, she is a well-developed, well-nourished white female in no acute distress. HEAD, EYES, EARS, NOSE, THROAT: ON HEENT examination, jugular venous pressure is normal. Carotid pulses are 2+ bilaterally and without bruits. CHEST: Examination of the chest reveals clear lung quiles. CARDIAC: On cardiac examination, she has a regular rhythm and rate without S3, S4 or murmur. ABDOMEN: On abdominal examination, she has a soft, nontender abdomen. Bowel sounds are present. There is no definite hepatosplenomegaly. EXTREMITIES: Examination of extremities reveals no clubbing or cyanosis. There is trace pretibial edema bilaterally. LABORATORY DATA: Laboratory data includes normal CBC. Potassium 5.4, BUN 14, creatinine 0.74. Negative cardiac enzymes. EKGS: EKG shows sinus rhythm, right bundle-branch block. IMAGING STUDIES: Chest x-ray shows minimal parenchymal opacity at the left lung base. IMPRESSION: Overall atypical chest pains in this 76-year-old white female with a history of hypothyroidism, brain cancer, CVA, hypertension, hyperlipidemia. Despite fairly constant chest discomfort for the left three weeks, cardiac enzymes are negative for myocardial infarction. EKG shows no acute S-T segment or T-wave changes. Reportedly no recurrent pulmonary embolism is seen on CT angiogram this admission. She does have risk factors for coronary artery disease. RECOMMENDATIONS: 1. Check a Lexiscan nuclear stress test. 2. Will follow up as needed for any ischemia demonstrated on nuclear stress testing. MD KATINA Trejo/MOY /3:04 PM /3:10 PM KALIA
[2016-11-30 15:46] VITALS: BP 160/84; PULSE 67; RESP 17; TEMP 97.8; O2SAT 98
[2016-11-30] MEDS ORDERED: AZITHROMYCIN INJ 500 MG in SODIUM CHLOR 0.9% 250 ML INJ 250 ML IV SCH (16:00)
[2016-11-30 19:59] VITALS: BP 141/86; PULSE 65; RESP 18; TEMP 98.7; O2SAT 96
[2016-12-01] MEDS: LEVOTHYROXINE SODIUM 112 MCG TAB PO SCH (06:25)
[2016-12-01] MEDS: SODIUM CHLOR 0.9% 1000 ML INJ 1,000 ML IV SCH ×2 (06:25→10:42)
[2016-12-01] MEDS: LEVOTHYROXINE SODIUM 25 MCG TAB PO SCH (06:25)
[2016-12-01 07:32] VITALS: BP 199/79; PULSE 64; RESP 18; TEMP 97.8; O2SAT 94
--- NOTE | 2016-12-01 07:53 | HHI.PR ---
Subjective Subjective Remarks Sitting in bed Denies any chest pain Chest is sore to touch and with movement No shortness of breath (Jazmine Cho) Review of Systems Constitutional Constitutional: Weakness (generalized) (Jazmine Cho) Pulmonary Respiratory: Coughing (occasional) (Jazmine Cho) Cardiology CV: Chest Pain (controlled, sore to touch) (Jazmine Cho) Chest/Breast Chest/Breast: Tenderness (Jazmine Cho) Musculoskeletal MS: Discomfort/Pain (injury right wrist and hand from a fall, immobilized and secured clean dry and intact) (Jazmine Cho) Neurologic Neurologic Remarks Speech garbled but understandable history of CVA (Jazmine Cho) Psychiatric Psychiatric: Normal Mood (Jazmine Cho) Vitals/Results Intake & Output 11/30/16 11/30/16 12/01/16 15:00 23:00 07:00 Intake Total 250 ml Output Total 2800 ml Balance -2550 ml Intake Oral 250 ml Output Urine Total 2800 ml # Voids 7 Vital Signs Vital Signs Date Time Temp Pulse Resp B/P Pulse Ox O2 Delivery O2 Flow Rate FiO2 12/01/16 07:32 97.8 64 18 199/79 94 11/30/16 19:59 98.7 65 18 141/86 96 11/30/16 15:46 97.8 67 17 160/84 98 11/30/16 12:21 97.7 59 18 159/73 97 (Jazmine Cho) CBC/BMP: 11/30/16 1016 11/30/16 1016 Lab Results Laboratory Tests Test 11/30/16 10:16 White Blood Count 6.1 TH/MM3 Red Blood Count 4.13 MIL/MM3 Hemoglobin 12.4 GM/DL Hematocrit 36.4 % Mean Corpuscular Volume 88.2 FL Mean Corpuscular Hemoglobin 30.1 PG Mean Corpuscular Hemoglobin 34.2 % Concent Red Cell Distribution Width 14.6 % Platelet Count 242 TH/MM3 Mean Platelet Volume 8.7 FL Neutrophils (%) (Auto) 63.4 % Lymphocytes (%) (Auto) 27.3 % Monocytes (%) (Auto) 7.3 % Eosinophils (%) (Auto) 1.5 % Basophils (%) (Auto) 0.5 % Neutrophils # (Auto) 3.8 TH/MM3 Lymphocytes # (Auto) 1.7 TH/MM3 Monocytes # (Auto) 0.4 TH/MM3 Eosinophils # (Auto) 0.1 TH/MM3 Basophils # (Auto) 0.0 TH/MM3 CBC Comment DIFF FINAL Differential Comment Hematology Comments Sodium Level 140 MEQ/L Potassium Level 5.4 MEQ/L Chloride Level 107 MEQ/L Carbon Dioxide Level 26.0 MEQ/L Anion Gap 7 MEQ/L Blood Urea Nitrogen 14 MG/DL Creatinine 0.74 MG/DL Estimat Glomerular Filtration 77 ML/MIN Rate Random Glucose 87 MG/DL Calcium Level 9.0 MG/DL Current Medications Administered Medications Medications (Trade) Dose Ordered Sig/Pushpa Route PRN Reason Start Time Stop Time Status Last Admin Dose Admin Sodium Chloride (NS 1000 ml Inj) 1,000 ml @ 100 mls/hr Q10H IV 11/29/16 18:00 12/01/16 06:25 Sodium Chloride (NS Flush) 2 ml BID IV FLUSH 11/29/16 21:00 11/30/16 21:00 Senna/Docusate Sodium 1 tab 1 tab BID PO 11/29/16 21:00 11/30/16 21:51 Azithromycin/ Sodium Chloride (Zithromax Inj/ NS 250 ml Inj) 250 ml @ 250 mls/hr Q24H IV 11/30/16 16:00 11/30/16 15:01 Pravastatin Sodium (Pravachol) 20 mg DAILY PO 11/30/16 09:00 11/30/16 08:42 Levothyroxine Sodium (Synthroid) 112 mcg DAILY@06 PO 11/30/16 06:00 12/01/16 06:25 Levothyroxine Sodium (Synthroid) 25 mcg DAILY@06 PO 11/30/16 06:00 12/01/16 06:25 Aspirin (Ecotrin Ec) 81 mg DAILY PO 11/29/16 23:00 11/30/16 08:42 Pantoprazole Sodium (Protonix) 40 mg DAILY PO 11/29/16 23:00 11/30/16 08:41 Enoxaparin Sodium (Lovenox Inj) 40 mg Q24H SQ 11/29/16 23:00 11/30/16 21:51 Metoprolol Tartrate (Lopressor) 37.5 mg BID PO 11/30/16 21:00 11/30/16 21:52 (Jazmine Cho) Physical Exam General General Appearance: Well Developed, Well Nourished (Jazmine ChoP) Eyes Eye Exam: Pupils Equal, Pupils Reactive (Jazmine ChoP) Ears & Nose Ears & Nose Exam: Nasal Mucosa Pena (Jazmine ChoP) Throat Throat Exam: Oral Mucosa [place] & Moist (Jazmine ChoP) Neck Neck Exam: Neck Supple (Jazmine ChoP) Pulmonary Resp Exam: Clear Bilaterally (Jazmine ChoP) Cardiology CV Exam: Regular (Jazmine ChoP) Gastrointestinal/Abdomen GI Exam: Soft, Non-Tender, Bowel Sounds Present (Jazmine Cho) Musculoskeletal MS Remarks Right hand and right wrist injury from fall, dressing secured (Jazmine Cho) Integumentary Skin Exam: Clear, Warm, Dry, Intact (Jazmine ChoP) Extremeties Extremities Exam: No Edema (Jazmine ChoP) Neurologic Neuro Exam: Awake, Moving All Extremities Neuro Remarks Speech mildly garbled but understandable (Jazmine ChoP) VTE Prophylaxis VTE Prophylaxis Meds: Heparin (Jazmine Cho) Assessment/Plan Assessment/Plan IMPRESSION 1. Chest discomfort. 2. Recent right hand fracture. 3. Hypertension uncontrolled 4. Hyperlipidemia. 5. History of PE status post approximately 2 years of anticoagulation. 6. Coronary calcifications noted on CT angiography of the chest. 7. Right bundle branch block. 8. History of a left sided stroke with mild right sided deficits. 9. 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 10. Recent EGD showing reflux esophagitis and mild antral gastritis. No further chest pain, atypical with chest soreness to tactile stimulation Cardiology consult for expert opinion plan on nuclear scan this a.m. low dose ASA, beta humble DVT prophylaxis PPI Comorbidities with medication management History of CVA with some mild gargle speech, medical management After nuclear scan, discharge planning probable home for follow-up with her PCP if scan is negative (Jazmine Cho) Assessment/Plan patient seen and examined stress test neg Appreciate Cardiology input BP high hold discharge till BP controlled and stable Hydralazine 20 mg po x1 increase BB to 50 mg po bid Add Amlodipine Possible discharge to home in am, if BP ok discussed with patient discussed with nursing staff discussed with Jazmine ALBERTS (Aleksandra Wheeler MD) Jazmine Cho December 01, 2016 07:53 Aleksandra Wheeler MD December 01, 2016 12:36
[2016-12-01] MEDS: ASPIRIN EC 81 MG TABEC PO SCH (08:09)
[2016-12-01] MEDS: SODIUM CHLORIDE 0.9% FLUSH 10 ML FLUSH IV FLUSH SCH (08:09)
[2016-12-01] MEDS: METOPROLOL TARTRATE 25 MG TAB PO SCH (08:10)
[2016-12-01] MEDS: PANTOPRAZOLE SOD 40 MG DELAYED RELEASE TAB PO SCH (08:10)
[2016-12-01] MEDS: DOCUSATE SODIUM 50 MG/SENNA 8.6 MG TAB PO SCH (08:10)
[2016-12-01] MEDS: PRAVASTATIN SOD 20 MG TAB PO SCH (08:10)
[2016-12-01] MEDS ORDERED: REGADENOSON INJ 0.4 MG/5 ML SYR ONE (09:08)
--- NOTE | 2016-12-01 10:04 | RADRPT ---
EXAM DATE/TIME: 12/01/2016 08:09 [facility] COMPARISON: MYOCARDIAL PERF PHARM SPECT, GATED W/EF, July 29, 2014, 11:45. INDICATIONS : Chest discomfort for one day. Angina. DOSE: 25.8 mCi Tc99m Myoview at stress. 8.3 mCi Tc99m Myoview at rest. 0.4 mg Lexiscan STRESS SYMPTOMS: Short of breath. EJECTION FRACTION: > 70% MEDICAL HISTORY : Hypertension. Hypothyroidism. Brain cancer. SURGICAL HISTORY : Hysterectomy. Left leg surgery. ENCOUNTER: Initial ACUITY: 2 days PAIN SCALE: 3/10 LOCATION: Midsternal chest TECHNIQUE: The patient underwent pharmacologic stress with infusion of prescribed dose. Continuous ECG tracing was monitored during stress. Gated SPECT imaging was performed after stress and conventional SPECT i maging was performed at rest. The examination was performed on a SPECT/CT scanner, both attenuation and non-corrected datasets were reviewed. FINDINGS: DISTRIBUTION: The maximum perfused segment at stress is in the anterolateral wall. PERFUSION STUDY: The pattern of perfusion at stress is within normal limits. No fixed or reversible perfusion defect. GATED STUDY: There is intact wall motion and thickening without hypokinetic or dyskinetic segments. CONCLUSION: 1. No fixed or reversible perfusion defect is identified. 2. Normal left ventricle wall motion with calculated ejection fraction greater than 70%. RISK CATEGORY: Low (<1% Annual Mortality Rate) Doug Smith MD on December 01, 2016 at 10:00 Board Certified Radiologist. This report was verified electronically.
[2016-12-01 10:26] VITALS: PULSE 63
[2016-12-01 11:31] VITALS: BP 196/87; PULSE 63; RESP 20; TEMP 97.9; O2SAT 97
[2016-12-01] MEDS ORDERED: amLODIPine BESYLATE 5 MG TAB PO SCH (12:45)
[2016-12-01] MEDS ORDERED: hydrALAZINE HCL 10 MG TAB PO ONE (12:45)
[2016-12-01 14:18] VITALS: BP 123/63; PULSE 66; RESP 20; TEMP 98.7; O2SAT 96
[2016-12-01 16:14] VITALS: BP 146/67
--- NOTE | 2016-12-01 16:42 | HHI.DS ---
Discharge Summary Admission Date November 29, 2016 at 16:41 Discharge Date: December 01, 2016 Admitting Diagnosis chest pain, change in mentation Procedures Onelia scan stress test Brief History This was a pleasant 76-year-old female who started having chest pain when she was walking her dog She felt short of breath. She felt some nausea. She did not vomit. She was not having palpitations. She was not having fever or chills or cough and she felt a little bit better at rest. She also felt a little dizzy and diaphoretic. She stopped at a neighbor's house. Her voice felt a little bit weak as well. It did not resolve on its own. She ended up coming into the emergency room. Initial work-up was essentially negative. CBC/BMP: 11/30/16 1016 11/30/16 1016 Significant Findings Laboratory Tests Test 11/29/16 11/29/16 11/29/16 11/30/16 14:00 18:30 19:40 02:20 Monocytes (%) (Auto) 8.7 % (0.0-8.0) Chloride Level 109 MEQ/L (98-107) Anion Gap 4 MEQ/L (5-15) Blood Urea Nitrogen 20 MG/DL (7-18) Estimat Glomerular Filtration 68 ML/MIN (>89) Rate Random Glucose 111 MG/DL (74-106) Troponin I LESS THAN 0.02 LESS THAN 0.02 LESS THAN 0.02 NG/ML NG/ML NG/ML (0.02-0.05) (0.02-0.05) (0.02-0.05) Urine Specific [place] GREATER THAN 1.035 (1.002-1.035) Urine Occult Blood MOD (NEG) Urine RBC 8 /hpf (0-3) Urine Mucus FEW /lpf (OCC) Ammonia LESS THAN 10 MCMOL/L (11-32) Thyroid Stimulating Hormone 0.042 uIU/ML 3rd Gen (0.358-3.740) Test 11/30/16 10:16 Potassium Level 5.4 MEQ/L (3.5-5.1) Estimat Glomerular Filtration 77 ML/MIN (>89) Rate Imaging Last Impressions Myocardial Perfusion Scan Nuc Med 12/01/16 0000 Signed Impressions: Service Date/Time: Thursday, December 01, 2016 08:09 - CONCLUSION: 1. No fixed or reversible perfusion defect is identified. 2. Normal left ventricle wall motion with calculated ejection fraction greater than 70%%. RISK CATEGORY: Low (<1%% Annual Mortality Rate) Doug Smith MD CT Angiography 11/29/16 1518 Signed Impressions: Service Date/Time: November 16:35 - CONCLUSION: 1. Negative for pulmonary embolus. 2. Moderate coronary calcifications. Kody Maddox MD Chest X-Ray 11/29/16 1344 Signed Impressions: Service Date/Time: November 14:33 - CONCLUSION: Minimal parenchymal opacity at the left lung base Doug Boone MD Head CT 11/29/16 0000 Signed Impressions: Service Date/Time: November 14:56 - CONCLUSION: 1. Remote left frontal and temporal lobe infarcts and left basal ganglia infarct. No acute findings compared with November 03. Kody Maddox MD PE at Discharge General General Appearance: Well Developed, Well Nourished ([place],Jazmine M. VIDEOTAPE SALES REPRESENTATIVE) Eyes Eye Exam: Pupils Equal, Pupils Reactive (Tammie,Jazmine M. VIDEOTAPE SALES REPRESENTATIVE) Ears & Nose Ears & Nose Exam: Nasal Mucosa [place] (Tammie,Jazmine M. VIDEOTAPE SALES REPRESENTATIVE) Throat Throat Exam: Oral Mucosa [place] & Moist ([place],Jazmine M. VIDEOTAPE SALES REPRESENTATIVE) Neck Neck Exam: Neck Supple (Tammie,Jazmine M. VIDEOTAPE SALES REPRESENTATIVE) Pulmonary Resp Exam: Clear Bilaterally (Tammie,Jazmine M. VIDEOTAPE SALES REPRESENTATIVE) Cardiology CV Exam: Regular ([place],Jazmine M. VIDEOTAPE SALES REPRESENTATIVE) Gastrointestinal/Abdomen GI Exam: Soft, Non-Tender, Bowel Sounds Present ([place],Jazmine M. VIDEOTAPE SALES REPRESENTATIVE) Musculoskeletal MS Remarks Right hand and right wrist injury from fall, dressing secured ([place],Jazmine M. VIDEOTAPE SALES REPRESENTATIVE) Integumentary Skin Exam: Clear, Warm, Dry, Intact ([place],Jazmine M. VIDEOTAPE SALES REPRESENTATIVE) Extremeties Extremities Exam: No Edema (Tammie,Jazmine M. VIDEOTAPE SALES REPRESENTATIVE) Neurologic Neuro Exam: Awake, Moving All Extremities Hospital Course There was a question of a left base opacity. She was started on zithromax. The pressure resolved and currently she had no chest pain. She stated that the worst was an 8 out of 10, now it is a 0 out of 10. She has never had pain like this before. She has no known cardiac history other than hypertension, hyperlipidemia. She has had a stroke and a PE in the past. Patient had original lab work and was stabilized with her pain. Vital signs were monitored throughout stay without acute advance. Cardiology was consult to and did Lexiscan nuclear stress test this a.m. scan was negative. Patient was monitored for her vital signs 4 hours and discharged home Patient's chest pain was thought to be atypical since her chest was sore to touch, but cardiovascular event was ruled out. She was medically stable for discharge Pt Condition on Discharge: Stable Discharge Disposition: Discharge Home Discharge Instructions DIET: Follow Instructions for: As Tolerated, No Restrictions Activities you can perform: Regular-No Restrictions Continued Medications: Acetaminophen (Acetaminophen Extra Strength) 500 Mg Tab 500 MG PO Q6H PRN PAIN SCALE 1 TO 4 #20 Ref 0 TAB Levothyroxine (Levothyroxine) 137 Mcg Tab 137 MCG PO DAILY Thyroid #30 Ref 0 TAB Metoprolol Tartrate (Metoprolol Tartrate) 25 Mg Tab 25 MG PO BID htn Days 30 TAB Simvastatin (Simvastatin) 10 Mg Tab 10 MG PO DAILY Cholesterol Management #30 Ref 0 TAB Jazmine Cho December 01, 2016 16:42
[2016-12-01 16:47] LABS: ANION GAP 7 MEQ/L (5-15); BICARBONATE 29.2 MEQ/L (21.0-32.0); BLOOD UREA NITROGEN 16 MG/DL (7-18); CHLORIDE 106 MEQ/L (98-107); GLOMERULAR FILTRATION RATE 70 ML/MIN (>89); POTASSIUM 3.9 MEQ/L (3.5-5.1); SODIUM (NA) 142 MEQ/L (136-145)
[2016-12-01] MEDS ORDERED: METOPROLOL TARTRATE 50 MG TAB PO SCH (21:00)
== END 2016-12-01 17:07 | disposition home or self-care (01) ==
LOC: NEPE 13:22 → NEDA 16:41 → NEPHCDU 20:41
PROVIDERS: ADMIT Internal Medicine; ATTEND Internal Medicine
DX: R07.89 Other chest pain (principal); I25.10 Atherosclerotic heart disease of native coronary artery without angina pectoris; I25.84 Coronary atherosclerosis due to calcified coronary lesion; I45.10 Unspecified right bundle-branch block; I10 Essential (primary) hypertension; E78.5 Hyperlipidemia, unspecified; I69.851 Hemiplegia and hemiparesis following other cerebrovascular disease affecting right dominant side; I69.820 Aphasia following other cerebrovascular disease; E78.00 Pure hypercholesterolemia, unspecified; E03.9 Hypothyroidism, unspecified; Z85.841 Personal history of malignant neoplasm of brain; Z86.711 Personal history of pulmonary embolism; Z88.5 Allergy status to narcotic agent; Z87.891 Personal history of nicotine dependence; E87.5 Hyperkalemia; Z91.81 History of falling
CPT/HCPCS: 70450; 71010; 71275; 76937; 78452; 80048; 80053; 81001; 82140; 82533; 82550; 83690; 83735; 84145; 84443; 84484; 85025; 85610; 85730; 93005; 93017; 99285; A9502; G0378; J0456; J1650; J2785; J7030; J7050; Q9967

== ENCOUNTER 2017-01-11 10:48 | Emergency (ER) | payer MEDICARE ==
[~2017-01-11] VITALS: Ht 170.2 cm; Wt 80.0 kg
[2017-01-11 10:54] VITALS: BP 213/90; PULSE 80; RESP 20; TEMP 97.9; O2SAT 96
[2017-01-11] MEDS ORDERED: WARF-23 PO (11:05)
[2017-01-11 11:39] VITALS: O2SAT 98
[2017-01-11 11:51] LABS: AUTOMATED NEUTROPHIL # 3.7 TH/MM3 (1.8-7.7); BASOPHIL % 0.5 % (0.0-2.0); EOSINOPHIL # 0.1 TH/MM3 (0-0.4); EOSINOPHIL % 1.9 % (0.0-4.0); HEMATOCRIT 36.5 % (35.0-46.0); HEMO FLAGS DIFF FINAL; LYMPH % 24.3 % (9.0-44.0); LYMPHOCYTE # 1.4 TH/MM3 (1.0-4.8); MEAN CELL VOLUME 88.4 FL (80.0-100.0); MEAN CORPUSCULAR HEMOGLOBIN 29.8 PG (27.0-34.0); MEAN CORPUSCULAR HGB CONC 33.8 % (32.0-36.0); MONO % 7.3 % (0.0-8.0); PLATELET COUNT 203 TH/MM3 (150-450); RED BLOOD COUNT 4.13 MIL/MM3 (4.00-5.30); RED CELL DISTRIBUTION WIDTH 14.2 % (11.6-17.2); WHITE BLOOD COUNT 5.6 TH/MM3 (4.0-11.0)
[2017-01-11 11:58] LABS: APTT (PATIENT) 33.2 SEC (24.3-30.1); INTERNATIONAL NORMALIZED RATIO 2.2 RATIO; PROTHROMBIN TIME - PATIENT 25.4 SEC (9.8-11.6)
--- NOTE | 2017-01-11 12:35 | RADRPT ---
EXAM DATE/TIME: 01/11/2017 12:20 [facility] COMPARISON: CT BRAIN W/O CONTRAST, November 29, 2016, 14:56. INDICATIONS : Fall today. RADIATION DOSE: 38.51 CTDIvol (mGy) MEDICAL HISTORY : Cardiovascular disease. Hypertension. Cerebrovascular disease.Brain aneurysm SURGICAL HISTORY : Hysterectomy. ENCOUNTER: Initial ACUITY: 1 day PAIN SCALE: 3/10 LOCATION: cranial TECHNIQUE: Multiple contiguous axial images were obtained of the head. Using automated exposure control and adj ustment of the mA and/or kV according to patient size, radiation dose was kept as low as reasonably a chievable to obtain optimal diagnostic quality images. DICOM format image data is available electro nically for review and comparison. FINDINGS: There is an old infarct in the left mid sylvian region. There is mild prominence to the ventricles. The right hemisphere is unremarkable. Posterior fossa is normal. There is no parenchymal hemorrhag e, mass effect or midline shift. No extra-axial fluid collections appreciated. CONCLUSION: Old infarct left sylvian region. Previous history of aneurysm on the left. Osvaldo Quintana MD FACR on January 11, 2017 at 12:31 Board Certified Radiologist. This report was verified electronically.
--- NOTE | 2017-01-11 12:36 | PD ---
HPI Chief Complaint: Fall Time Seen by Provider: 11:19 Travel History International Travel<30 days: No Contact w/Intl Traveler<30days: No Traveled to known affect area: No History of Present Illness HPI 76-year-old female complains of headache. Patient states that she fell this morning. Patient is not sure of loss of consciousness. Patient complains of headache mostly right frontal head. Patient denies any visual change. Patient denies any neck pain. Patient denies any chest pain or shortness of breath. Patient denies abdominal pain. Patient denies any extremity injury. Patient has history of brain aneurysm, status post craniotomy, status post CVA, and on Coumadin. Patient also has history of hyperlipidemia, hypertension, thyroid disease. On a scale of 1-10 headache is a 3. 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) Psychiatric: No Reproductive: No Respiratory: No Immunizations Current: Yes Radiation Therapy: No Sleep Apnea: No Thyroid Disease: Yes ?: Not Menopausal: Yes Past Surgical History Abdominal Surgery: No Cardiac Surgery: No Ear Surgery: No Endocrine Surgery: No Eye Surgery: No Genitourinary Surgery: No Gynecologic Surgery: Yes (HYSTERECTOMY) Hysterectomy: Yes Neurologic Surgery: Yes (CRANIOTOMY) Oral Surgery: No Thoracic Surgery: No Tonsillectomy: Yes Other Surgery: Yes Social History Alcohol Use: Yes (RARELY) Tobacco Use: No (quit 12 yrs ago smoked cigs) Substance Use: No Allergies-Medications (Allergen,Severity, Reaction): Coded Allergies: Morphine (Verified Allergy, Mild, 11/29/16) Reported Meds & Prescriptions Reported Meds & Active Scripts Active Metoprolol Tartrate 25 Mg Tab 25 Mg PO BID 30 Days Reported Warfarin 5 Mg Tab 5 Mg PO DAILY Levothyroxine (Levothyroxine Sodium) 137 Mcg Tab 137 Mcg PO DAILY Simvastatin 10 Mg Tab 10 Mg PO DAILY Review of Systems General / Constitutional: No: Fever Eyes: No: Visual changes HENT: Positive: Headaches Cardiovascular: No: Chest Pain or Discomfort Respiratory: No: Shortness of Breath Gastrointestinal: No: Abdominal Pain Genitourinary: No: Dysuria Musculoskeletal: No: Pain Skin: No Rash Neurologic: No: Weakness Psychiatric: No: Depression Endocrine: No: Polydipsia Hematologic/Lymphatic: No: Easy Bruising Physical Exam Narrative GENERAL: Well-nourished, well-developed patient. SKIN: Focused skin assessment warm/dry. HEAD: Normocephalic. Patient has soft tissue swelling tenderness right frontal head. EYES: No scleral icterus. No injection or drainage. Pupils 3 mm equal reactive. NECK: Supple, trachea midline. No JVD or lymphadenopathy. No tenderness on palpation of the neck. CARDIOVASCULAR: Regular rate and rhythm without murmurs, gallops, or rubs. RESPIRATORY: Breath sounds equal bilaterally. No accessory muscle use. GASTROINTESTINAL: Abdomen soft, non-tender, nondistended. MUSCULOSKELETAL: No cyanosis, or edema. Patient has ulnar gutter splint on the right arm. BACK: Nontender without obvious deformity. No CVA tenderness. Neurologic exam: Patient was awake and alert oriented 3. No obvious focal neurological deficit. Data Data Last Documented VS Vital Signs Date Time Temp Pulse Resp B/P Pulse Ox O2 Delivery O2 Flow Rate FiO2 01/11/17 11:39 98 01/11/17 10:54 97.9 80 20 213/90 Orders Complete Blood Count With Diff (01/11/17 11:24) Basic Metabolic Panel (Bmp) (01/11/17 11:24) Prothrombin Time / Inr (Pt) (01/11/17 11:24) Act Partial Throm Time (Ptt) (01/11/17 11:24) Ct Brain W/O Iv Contrast(Rout) (01/11/17 11:24) Iv Access Insert/Monitor (01/11/17 11:24) Ecg Monitoring (01/11/17 11:24) Oximetry (01/11/17 11:24) Labs Laboratory Tests Test 01/11/17 11:20 White Blood Count 5.6 TH/MM3 Red Blood Count 4.13 MIL/MM3 Hemoglobin 12.3 GM/DL Hematocrit 36.5 % Mean Corpuscular Volume 88.4 FL Mean Corpuscular Hemoglobin 29.8 PG Mean Corpuscular Hemoglobin 33.8 % Concent Red Cell Distribution Width 14.2 % Platelet Count 203 TH/MM3 Mean Platelet Volume 9.0 FL Neutrophils (%) (Auto) 66.0 % Lymphocytes (%) (Auto) 24.3 % Monocytes (%) (Auto) 7.3 % Eosinophils (%) (Auto) 1.9 % Basophils (%) (Auto) 0.5 % Neutrophils # (Auto) 3.7 TH/MM3 Lymphocytes # (Auto) 1.4 TH/MM3 Monocytes # (Auto) 0.4 TH/MM3 Eosinophils # (Auto) 0.1 TH/MM3 Basophils # (Auto) 0.0 TH/MM3 CBC Comment DIFF FINAL Differential Comment Prothrombin Time 25.4 SEC Prothromb Time International 2.2 RATIO Ratio Activated Partial 33.2 SEC Thromboplast Time Sodium Level 142 MEQ/L Potassium Level 4.0 MEQ/L Chloride Level 109 MEQ/L Carbon Dioxide Level 26.0 MEQ/L Anion Gap 7 MEQ/L Blood Urea Nitrogen 14 MG/DL Creatinine 0.74 MG/DL Estimat Glomerular Filtration 77 ML/MIN Rate Random Glucose 108 MG/DL Calcium Level 9.1 MG/DL [facility] Medical Decision Making Medical Screen Exam Complete: Yes Emergency Medical Condition: Yes Interpretation(s) 12:36 PM. CBC within normal limit. BMP within normal limit. INR 2.2. 12:[address] scan of brain showed no acute pathology. Differential Diagnosis Differential diagnosis included contusion, concussion, intracranial hemorrhage. Narrative Course 76-year-old female with head injury. Patient's on Coumadin. Diagnosis Primary Impression: Closed head injury Qualified Code: S09.90XA - Closed head injury, initial encounter Patient Instructions: General Instructions Additional Instructions: Head trauma instructions given. Continue with all medications. Follow-up with personal physician. Return as needed. Tylenol for headache. Med/Other Pt SpecificInfo: No Change to Meds Disposition: 01 DISCHARGE HOME Condition: Stable Gilmar Little MD Jan 11, 2017 12:36
[2017-01-11 12:58] VITALS: BP 165/87
== END 2017-01-11 13:03 | disposition home or self-care (01) ==
LOC: NEPC 10:48
DX: S09.90XA Unspecified injury of head, initial encounter (principal); I10 Essential (primary) hypertension; E78.5 Hyperlipidemia, unspecified; E07.9 Disorder of thyroid, unspecified; E78.00 Pure hypercholesterolemia, unspecified; Z79.01 Long term (current) use of anticoagulants; Z86.73 Personal history of transient ischemic attack (TIA), and cerebral infarction without residual deficits; Z87.891 Personal history of nicotine dependence; W19.XXXA Unspecified fall, initial encounter
CPT/HCPCS: 70450; 80048; 85025; 85610; 85730

== ENCOUNTER 2017-01-11 18:48 | Observation (INO) | payer MEDICARE ==
[~2017-01-11] VITALS: Ht 170.2 cm; Wt 75.0 kg
[~2017-01-11 18:48] MED LIST changes: +WARF-23 PO
[2017-01-11 18:54] VITALS: BP 100/74; PULSE 20; PULSE 74; RESP 20; TEMP 97.7; O2SAT 96
--- NOTE | 2017-01-11 19:19 | PD ---
Physical Exam Time Seen by Provider: 19:15 Narrative 76yo F seen this morning after being found on the ground by neighbors and brought her by [facility]AC. Another Neighbor here now and brought her back in for concern of vomiting multiple times after discharge and concern of concussion. Patient seen in triage. VS reviewed. Patient awaiting bed placement. Data Data Last Documented VS Vital Signs Date Time Temp Pulse Resp B/P Pulse Ox O2 Delivery O2 Flow Rate FiO2 01/11/17 18:54 97.7 74 20 100/74 96 Room Air [facility] Supervised Visit with JOSE: Lisa Sawant Jan 11, 2017 19:19
[2017-01-11] MEDS ORDERED: SODIUM CHLOR 0.9% 1000 ML INJ 1,000 ML IV ONE (19:52)
--- NOTE | 2017-01-11 19:56 | PD ---
HPI Chief Complaint: Fall Time Seen by Provider: 19:30 Travel History International Travel<30 days: No Contact w/Intl Traveler<30days: No Traveled to known affect area: No History of Present Illness HPI 6-year-old female had a single episode earlier today and hit her head, she did not remember the incident. She returns for a second evaluation emergency Department. She states after returning home after a CAT scan of her head today she was vomiting and couldn't keep anything down. She states her head is still feels mildly uncomfortable. She does take Coumadin for a history of stroke in the past. She coming by her neighbor who states she has multiple falls in the past and has a broken right arm which she is currently splinted for. 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) Psychiatric: No Reproductive: No Respiratory: No Immunizations Current: Yes Radiation Therapy: No Sleep Apnea: No Thyroid Disease: Yes Menopausal: Yes Past Surgical History Abdominal Surgery: No Cardiac Surgery: No Ear Surgery: No Endocrine Surgery: No Eye Surgery: No Genitourinary Surgery: No Gynecologic Surgery: Yes (HYSTERECTOMY) Hysterectomy: Yes Neurologic Surgery: Yes (CRANIOTOMY) Oral Surgery: No Thoracic Surgery: No Tonsillectomy: Yes Other Surgery: Yes Social History Alcohol Use: Yes (RARELY) Tobacco Use: No (quit 12 yrs ago smoked cigs) Substance Use: No Allergies-Medications (Allergen,Severity, Reaction): Coded Allergies: Morphine (Verified Allergy, Mild, 01/11/17) Reported Meds & Prescriptions Reported Meds & Active Scripts Active Metoprolol Tartrate 25 Mg Tab 25 Mg PO BID 30 Days Reported Warfarin 5 Mg Tab 5 Mg PO DAILY Levothyroxine (Levothyroxine Sodium) 137 Mcg Tab 137 Mcg PO DAILY Simvastatin 10 Mg Tab 10 Mg PO DAILY Review of Systems Except as stated in HPI: all other systems reviewed are Neg Physical Exam Narrative GENERAL: Well-developed well-nourished no obvious distress, somewhat giddy. SKIN: Focused skin assessment warm/dry. HEAD: No mcpherson signs no raccoons eyes, contusion to the right frontal area.. Normocephalic. EYES: Pupils equal and round. No scleral icterus. No injection or drainage. ENT: No nasal bleeding or discharge. Mucous membranes pink and moist. NECK: Trachea midline. No JVD. CARDIOVASCULAR: Regular rate and rhythm. No murmur appreciated. 2+ bilateral equal pulses in all 4 extremity's. RESPIRATORY: No accessory muscle use. Clear to auscultation. Breath sounds equal bilaterally. GASTROINTESTINAL: Abdomen soft, non-tender, nondistended. Hepatic and splenic margins not palpable. MUSCULOSKELETAL: No obvious deformities. No clubbing. No cyanosis. No edema. NEUROLOGICAL: Awake and alert and oriented 4.. Cranial nerves II through XII are grossly intact and nonfocal, 5 out of 5 strength in all 4 extremities. PSYCHIATRIC: Appropriate mood and affect; insight and judgment normal. Data Data Last Documented VS Vital Signs Date Time Temp Pulse Resp B/P Pulse Ox O2 Delivery O2 Flow Rate FiO2 01/11/17 18:54 97.7 74 20 100/74 96 Room Air Orders Electrocardiogram (01/11/17 19:52) Complete Blood Count With Diff (01/11/17 19:52) Comprehensive Metabolic Panel (01/11/17 19:52) Troponin I (01/11/17 19:52) Act Partial Throm Time (Ptt) (01/11/17 19:52) Prothrombin Time / Inr (Pt) (01/11/17 19:52) Urinalysis - C+S If Indicated (01/11/17 19:52) Ct Brain W/O Iv Contrast(Rout) (01/11/17 19:52) Ecg Monitoring (01/11/17 19:52) Iv Access Insert/Monitor (01/11/17 19:52) Oximetry (01/11/17 19:52) Sodium Chloride 0.9% Flush (Ns Flush) (01/11/17 20:00) Sodium Chlor 0.9% 1000 Ml Inj (Ns 1000 M (01/11/17 19:52) Ondansetron Inj (Zofran Inj) (01/11/17 20:00) Admit Order (Ed Use Only) (01/11/17 ) Labs Laboratory Tests Test 01/11/17 01/11/17 20:58 21:35 White Blood Count 6.3 TH/MM3 Red Blood Count 4.41 MIL/MM3 Hemoglobin 12.6 GM/DL Hematocrit 39.3 % Mean Corpuscular Volume 89.0 FL Mean Corpuscular Hemoglobin 28.5 PG Mean Corpuscular Hemoglobin 32.0 % Concent Red Cell Distribution Width 14.3 % Platelet Count 209 TH/MM3 Mean Platelet Volume 8.8 FL Neutrophils (%) (Auto) 77.7 % Lymphocytes (%) (Auto) 15.7 % Monocytes (%) (Auto) 5.6 % Eosinophils (%) (Auto) 0.7 % Basophils (%) (Auto) 0.3 % Neutrophils # (Auto) 4.9 TH/MM3 Lymphocytes # (Auto) 1.0 TH/MM3 Monocytes # (Auto) 0.4 TH/MM3 Eosinophils # (Auto) 0.0 TH/MM3 Basophils # (Auto) 0.0 TH/MM3 CBC Comment DIFF FINAL Differential Comment Urine Color YELLOW Urine Turbidity HAZY Urine pH 7.5 Urine Specific [place] 1.015 Urine Protein 30 mg/dL Urine Glucose (UA) NEG mg/dL Urine Ketones NEG mg/dL Urine Occult Blood MOD Urine Nitrite NEG Urine Bilirubin NEG Urine Urobilinogen LESS THAN 2.0 MG/DL Urine Leukocyte Esterase NEG Urine RBC 28 /hpf Urine WBC LESS THAN 1 /hpf Urine Squamous Epithelial <1 /hpf Cells Urine Mucus FEW /lpf Microscopic Urinalysis Comment CULT NOT INDICATED Sodium Level 140 MEQ/L Potassium Level 3.7 MEQ/L Chloride Level 107 MEQ/L Carbon Dioxide Level 25.5 MEQ/L Anion Gap 8 MEQ/L Blood Urea Nitrogen 13 MG/DL Creatinine 0.79 MG/DL Estimat Glomerular Filtration 71 ML/MIN Rate Random Glucose 104 MG/DL Calcium Level 9.3 MG/DL Total Bilirubin 0.5 MG/DL Aspartate Amino Transf 15 U/L (AST/SGOT) Alanine Aminotransferase 18 U/L (ALT/SGPT) Alkaline Phosphatase 83 U/L Troponin I LESS THAN 0.02 NG/ML Total Protein 7.8 GM/DL Albumin 3.7 GM/DL Prothrombin Time 28.6 SEC Prothromb Time International 2.5 RATIO Ratio Activated Partial 37.8 SEC Thromboplast Time MDM Medical Decision Making Medical Screen Exam Complete: Yes Emergency Medical Condition: Yes Interpretation(s) EKG shows normal sinus rhythm with a right bundle branch block. No concerning ST segment changes. QRS duration 146, otherwise intervals within normal limits. This an abnormal EKG. Differential Diagnosis Delayed intracranial hemorrhage, cardiogenic syncope, vasovagal syncope, neurogenic syncope, substance abuse. Narrative Course Patient is a 76-year-old female presents emergency department for evaluation of nausea and vomiting in the setting of a closed head injury on anticoagulation. Initial workup earlier today with CT head and basic lab work which is negative. Repeated this workup here for concerns of a delayed intracranial hemorrhage given her nausea and vomiting and does not show acute intracranial hemorrhage. Initial workup including CBC CMP troponin negative. INR is 2.5. Discussed with the patient my concerns for her dizziness, further review the patient states she does take some medicines for sedation and states she's been taking them for a long time and usually takes them in the morning. This may be playing a role in her syncope. She cannot recall what the medications are. Discussed my concerns for her syncope and recommended observation status and she is agreeable. Patient was discussed with Nuha DE LA PAZ for [facility] and will be admitted to Dr. Holm for observation status. Diagnosis Primary Impression: Syncope Additional Impression: Closed head injury Admitting Information Admitting Physician Requests: Observation Condition: Stable Ildefonso Lantigua MD Jan 11, 2017 19:55
[2017-01-11] MEDS ORDERED: SODIUM CHLORIDE 0.9% FLUSH 10 ML FLUSH IVF PRN (20:00)
[2017-01-11] MEDS ORDERED: ONDANSETRON HCL 4 MG/2 ML VIAL IV PUSH ONE (20:00)
--- NOTE | 2017-01-11 20:32 | RADRPT ---
EXAM DATE/TIME: 01/11/2017 20:07 [facility] COMPARISON: CT BRAIN W/O CONTRAST, January 11, 2017, 12:20. INDICATIONS : Fall earlier today, nausea and vomiting. RADIATION DOSE: 56.35 CTDIvol (mGy) MEDICAL HISTORY : Cardiovascular disease. Hypertension. Aneurysm, intracranial .Brain cancer. CVA. SURGICAL HISTORY : Hysterectomy. ENCOUNTER: Subsequent ACUITY: 1 day PAIN SCALE: 0/10 LOCATION: Cranial TECHNIQUE: Multiple contiguous axial images were obtained of the head. Using automated exposure control and adj ustment of the mA and/or kV according to patient size, radiation dose was kept as low as reasonably a chievable to obtain optimal diagnostic quality images. DICOM format image data is available electro nically for review and comparison. FINDINGS: There is evidence for previous aneurysm repair and surgery on the left. The right hemisphere is unremarkable. The right hemisphere is unremarkable. There is atrophy on the left with dilatation of the left lateral ventricle. The right hemisphere is unremarkable. Posterior fossa appears normal. Soft tissue swelling over the left frontal bone without fracture. CONCLUSION: Stable CT scan from 01/11/17 earlier the same day. Osvaldo Quintana MD FACR on January 11, 2017 at 20:20 Board Certified Radiologist. This report was verified electronically.
[2017-01-11 21:14] LABS: AUTOMATED NEUTROPHIL # 4.9 TH/MM3 (1.8-7.7); BASOPHIL % 0.3 % (0.0-2.0); EOSINOPHIL % 0.7 % (0.0-4.0); HEMATOCRIT 39.3 % (35.0-46.0); HEMO FLAGS DIFF FINAL; LYMPH % 15.7 % (9.0-44.0); MEAN CORPUSCULAR HEMOGLOBIN 28.5 PG (27.0-34.0); MONO % 5.6 % (0.0-8.0); NEUT % 77.7 % (16.0-70.0); PLATELET COUNT 209 TH/MM3 (150-450); RED BLOOD COUNT 4.41 MIL/MM3 (4.00-5.30); RED CELL DISTRIBUTION WIDTH 14.3 % (11.6-17.2); WHITE BLOOD COUNT 6.3 TH/MM3 (4.0-11.0)
[2017-01-11 21:16] LABS: BLOOD, URINE MOD (NEG); COMMENT (UR) CULT NOT INDICATED; CULTURE IF INDICATED CULT NOT INDICATED; GLUCOSE,URINE NEG (NEG); KETONE, URINE NEG (NEG); MUCUS URINE FEW /lpf (OCC); NITRITE,URINE NEG (NEG); PH, URINE 7.5 (5.0-8.5); SQUAMOUS EPITHELIAL CELL URINE <1 /hpf (0-5); URINE COLOR YELLOW (YELLW/STRAW)
[2017-01-11 21:35] LABS: ANION GAP 8 MEQ/L (5-15); AST (GOT) 15 U/L (15-37); BICARBONATE 25.5 MEQ/L (21.0-32.0); BLOOD UREA NITROGEN 13 MG/DL (7-18); CHLORIDE 107 MEQ/L (98-107); GLOMERULAR FILTRATION RATE 71 ML/MIN (>89); POTASSIUM 3.7 MEQ/L (3.5-5.1); SODIUM (NA) 140 MEQ/L (136-145)
[2017-01-11 21:36] LABS: ALT (GPT) 18 U/L (10-53)
[2017-01-11 21:40] LABS: ALKALINE PHOSPHATASE 83 U/L (45-117); TOTAL BILIRUBIN ADULT 0.5 MG/DL (0.2-1.0)
[2017-01-11 22:04] LABS: APTT (PATIENT) 37.8 SEC (24.3-30.1); INTERNATIONAL NORMALIZED RATIO 2.5 RATIO; PROTHROMBIN TIME - PATIENT 28.6 SEC (9.8-11.6)
[2017-01-11] MEDS ORDERED: NALOXONE HCL 0.4 MG/ML AMP IV PRN (23:30)
[2017-01-11] MEDS ORDERED: SENNOSIDES 8.6 MG TAB PO PRN (23:30)
[2017-01-11] MEDS ORDERED: SODIUM CHLORIDE 0.9% FLUSH 10 ML FLUSH IV FLUSH PRN (23:30)
[2017-01-11] MEDS ORDERED: BISACODYL 10 MG SUPP RECTAL PRN (23:30)
[2017-01-11] MEDS ORDERED: MAGNESIUM HYDROXIDE SUSP 30 ML CUP PO PRN (23:30)
[2017-01-11] MEDS ORDERED: LACTULOSE SYRUP 20 GM/30 ML CUP PO PRN (23:30)
[2017-01-11] MEDS ORDERED: ONDANSETRON HCL 4 MG/2 ML VIAL IVP PRN (23:30)
[2017-01-11 23:50] VITALS: BP 148/82; PULSE 80; RESP 15; O2SAT 95
[2017-01-12] VITALS (9 sets, daily range): BP systolic 124–203; BP diastolic 56–91; PULSE 53–88; RESP 16–18; TEMP 97.1–98.8; O2SAT 94–98
[2017-01-12] MEDS: ACETAMINOPHEN 325 MG TAB PO PRN ×2 (01:55→17:24)
[2017-01-12] MEDS: cloNIDine HCL 0.1 MG TAB PO PRN (03:02)
[2017-01-12] MEDS: LEVOTHYROXINE SODIUM 112 MCG TAB PO SCH (06:08)
[2017-01-12] MEDS: LEVOTHYROXINE SODIUM 25 MCG TAB PO SCH (06:08)
[2017-01-12 07:13] LABS: INTERNATIONAL NORMALIZED RATIO 2.6 RATIO
[2017-01-12] MEDS: PRAVASTATIN SOD 20 MG TAB PO SCH (08:43)
[2017-01-12] MEDS: METOPROLOL TARTRATE 25 MG TAB PO SCH ×2 (08:43→20:20)
[2017-01-12] MEDS: DOCUSATE SODIUM 50 MG/SENNA 8.6 MG TAB PO SCH ×2 (08:43→20:21)
[2017-01-12] MEDS: SODIUM CHLORIDE 0.9% FLUSH 10 ML FLUSH IV FLUSH SCH ×2 (08:45→20:21)
--- NOTE | 2017-01-12 09:15 | RADRPT ---
EXAM DATE/TIME: 01/12/2017 08:25 [facility] COMPARISON: No previous studies available for comparison. INDICATIONS : Syncope. MEDICAL HISTORY : Hypothyroidism. Stroke Hypercholesterolemia. Hypertension. SURGICAL HISTORY : Tonsillectomy. Hysterectomy. Left knee surgery. Craniotomy. ENCOUNTER: Initial ACUITY: 1 day PAIN SCORE: 4/10 LOCATION: Bilateral neck PEAK SYSTOLIC VELOCITIES (cm/sec): ICA/CCA RATIO: Right: 0.9 Left: 1.3 ICA: Right: 92 Left: 114 CCA: Right: 100 Left: 90 ECA: Right: 109 Left: 228 VERTEBRAL: Right: 71 antegrade Left: 80 antegrade Elevated flow velocities and ICA/CCA ratios have been found to correlate with increased degrees of vessel stenosis, calculated as percentage of diameter relative to a normal segment of distal ICA/CCA FINDINGS: RIGHT CAROTID: No significant stenosis is visualized. The waveforms are within normal limits. LEFT CAROTID: No significant stenosis is visualized. The waveforms are within normal limits. VERTEBRAL ARTERIES: Antegrade flow is seen in both vertebral arteries. MISCELLANEOUS: None. CONCLUSION: Normal examination. Mild atherosclerotic disease bilaterally without two-dimensional stenosis. Ruperto Davis MD on January 12, 2017 at 9:13 Board Certified Radiologist. This report was verified electronically.
--- NOTE | 2017-01-12 09:49 | HHI.PR ---
Objective Objective Results - Vital Signs Date Time Temp Pulse Resp B/P Pulse Ox O2 Delivery O2 Flow Rate FiO2 01/12/17 08:00 97.1 64 16 149/70 95 152/74 138/74 01/12/17 04:20 78 01/12/17 03:37 98.4 70 18 156/85 95 01/12/17 01:59 98.7 70 18 203/91 94 01/11/17 23:50 80 15 148/82 95 Room Air 01/11/17 18:54 97.7 74 20 100/74 96 Room Air I/O 01/11/17 01/11/17 01/11/17 01/12/17 01/12/17 01/12/17 07:00 15:00 23:00 07:00 15:00 23:00 Intake Total 240 ml Balance 240 ml Intake Oral 240 ml # Voids 4 (Jazmine Cho) Result Diagram: 01/11/17205701/11/172057 Physical Exam Physical Exam PHYSICAL EXAMINATION GENERAL: This is a well-developed, well-nourished female who appears to be in no acute distress. She is alert and awake, []. HEAD: Normocephalic without any lesion or mass noted. Facial features appear symmetric. OROPHARYNGEAL: Oropharynx without erythema or edema. NECK: Supple. No nuchal rigidity or lymphadenopathy. Trachea midline without deviation. CARDIAC: Regular rhythm, regular rate, S1 and S2 are heard. Murmur []; no gallops or rubs. LUNGS: Clear to auscultation bilaterally. [] wheeze, [] rhonchi or [] rale. No use of accessory muscles on inspiration or expiration. ABDOMEN: Soft, nontender, no organomegaly or masses. Bowel sounds are heard in all four quadrants. No rebound. No guarding. EXTREMITIES: [] edema. Pulses equal bilateral. [] cyanosis. NEUROLOGICAL: Patient mood and affect appropriate. No focal deficit SKIN:Warm and moist (Jazmine Cho) A/P Assessment and Plan dictated IV access infiltrated, needs vascular to replace, pt. refusing new IV if she is going home, currently not recieving any IV meds. will eval needs if warrented. 0800 (Jazmine Cho) Jazmine Cho Jan 12, 2017 09:49 Smith Holm MD Jan 12, 2017 13:26
--- NOTE | 2017-01-12 13:37 | MH ---
cc: MIGUEL NEGRETE MD DATE OF ADMISSION: 01/11/2017 DATE OF : 1940 CHIEF COMPLAINT Fall with nausea and vomiting. HISTORY OF PRESENT ILLNESS This is a pleasant 76-year-old white female who was seen earlier in the day for a fall and a syncopal episode. She does not remember anything about the incident but was evaluated in the emergency room. After a CAT scan, she was ruled out for any type of bleeding event and was sent home. While at home, she started having nausea and vomiting to the point that she could not keep anything down and came back to the emergency room for revaluation per a neighbor. The patient does live alone and does have a history of a brain tumor approximately 20 years ago. She thinks she did have a craniotomy and to her knowledge had no other issues. The patient is a [id number] historian. She does appear to have some mild pleasant confusion. She cannot remember her medications that she takes but is able to give simple answers to questions. The patient currently does have a blackeye which is partially swollen shut from her fall. It is noted in the record that her neighbor states that she has been having multiple falls in the past, and currently has a right broken arm which is splinted and she has been followed per Ortho as an outpatient. Currently the patient denies any shortness of breath, no further nausea or vomiting, states it did subside on its own. She has had a history of stroke in the past and does take Coumadin. She denies any other symptoms of dizziness and to her knowledge has no warning of any type of syncopal episode or passing out. She does complain of some mild chest discomfort with movement. PAST MEDICAL HISTORY 1. Coumadin therapy. 2. Brain tumor. 3. Hypertension. 4. Hyperlipidemia. 5. History of CVA approximately 12 years ago, right-sided weakness and some slurred speech. 6. Thyroid disease. PAST SURGICAL HISTORY 1. Hysterectomy. 2. Craniotomy. 3. Tonsillectomy. ALLERGIES MORPHINE. MEDICATIONS REPORTED 1. Metoprolol. 2. Coumadin. 3. Levothyroxine. 4. Simvastatin. SOCIAL HISTORY Currently lives alone. Rarely drinks any alcohol. Quit smoking cigarettes approximately 12 years ago. No illicit drug use. REVIEW OF SYSTEMS A 12-point review was obtained. Positives noted are nausea and vomiting which have subsided, recent falls with syncopal episode, current right fractured lower arm and wrist area which is splinted. Her speech is slow which appears to be chronic from her previous CVA 12 years ago. Mild right-sided weakness. Otherwise, systems negative or unremarkable. PHYSICAL EXAMINATION VITAL SIGNS: Temperature is 97.1, pulse labile between 64-80, respiration 16, blood pressure 149/70 and 152/74 sitting, supine is 149/70, standing 138/74. GENERAL: Well-nourished, mildly obese white female, looks to be her stated age, resting in the bed. She is awake, answers questions slowly but appropriately. She does have some mild simple confusion as far as remembering medications. SKIN: Skin is pink, warm and dry. A blackened right eye secondary to her recent fall. HEENT: PERRLA at 2. Mucous membranes are slightly dry. NECK: Neck is supple. CARDIOVASCULAR: S1, S2. Rhythm is regular. No murmurs, rubs or gallops. No edema. Pulses are intact. PULMONARY: Essentially clear anteriorly and posteriorly with no wheezes, rales or rhonchi. ABDOMEN: Abdomen is round, soft, nontender. Active bowel sounds. MUSCULOSKELETAL: She can move her extremities with purpose. Some mild right-sided weakness which appears to be residual from her previous CVA. NEUROLOGIC: Neurologically, she is alert, awake, answers most questions appropriately related to her symptoms. PSYCHIATRIC: Mood and affect are appropriate. Mildly restless and anxious, mild anxiety. DIAGNOSTIC DATA WBC count 6.3, RBC 4.41, hemoglobin 12.6, hematocrit 39.3, platelet count 209, neutrophil count elevated at 77.7, other differential is normal. Chemistries: Sodium 140, potassium 3.7, chloride 107, CO2 25.5, GFR 71, troponin is less than 0.02. PT/INR 2.6. Urine is yellow and hazy, positive for protein, moderate amount of occult blood, negative for leukocyte esterase. Culture is not indicated. IMAGING CT scan was stable and compared to the one earlier in the day on 01/11 which was normal. ASSESSMENT 1. Recent syncopal episode with closed head injury. 2. Nausea and vomiting which has resolved. 3. Recent right wrist injury with metacarpal bone fracture, this is currently secured. 4. Hypertension. 5. History of hypothyroidism. 6. Atypical chest pain with movement, probably secondary to her fall. PLAN Our plan is to - 1. Monitor, evaluate vital signs and neuro checks every 4 hours. 2. We will check orthostatic blood pressures. 3. We will check her ultrasound of the carotids which is pending. 4. Continue her medications as warranted which include her Coumadin. 5. Continue ECG monitoring. 6. IV access has been difficult and is currently not in place. The patient is requesting no further IV sticks and no vascular access until evaluated per physician. This information has been reported to Dr. Negrete. 7. The patient can be out of bed but only with assistance. 8. Catapres patch q.6 p.r.n. for any blood pressure elevation. 9. Heart healthy diet. 10. We will discuss any further treatment needs with Dr. Negrete. The patient is FULL CODE/FULL AGGRESSIVE CARE and we will follow. Dictated by: Jazmine Cho NP MD CESAR [place]/TONY /9:15 AM /12:44 PM seen, examined by myself, Dr Negrete, today 01/12/17 Discussed with patient Discussed with mid level provider The exam, history, and the medical decision-making described in the above note were completed with the assistance of the mid-level provider. I reviewed the findings presented. I attest that I had a [id number] encounter with the patient on the same day, and personally performed and documented my assessment and findings in the medical record. Admitted with concussion Right periorbital hematoma Recent right upper extremity fracture She lives by herself Unable to go home safely today Possible discharge tomorrow, KALIA
--- NOTE | 2017-01-12 16:16 | EKG ---
Date Performed: 01/11/2017 Time Performed: 21:11:18 PTAGE: 76 years EKG: Sinus rhythm RIGHT BUNDLE BRANCH BLOCK ABNORMAL ECG PREVIOUS TRACING : 11/30/2016 02.08 Compared to prior tracing no significant change DOCTOR: Fred Portillo Interpretating Date/Time 01/12/2017 16:15:14
[2017-01-12] MEDS: WARFARIN SOD 5 MG TAB PO SCH (17:24)
[2017-01-13] VITALS (10 sets, daily range): BP systolic 123–195; BP diastolic 61–85; PULSE 51–70; RESP 16–18; TEMP 97.4–97.8; O2SAT 95–98
[2017-01-13] MEDS: cloNIDine HCL 0.1 MG TAB PO PRN (01:10)
[2017-01-13] MEDS: LEVOTHYROXINE SODIUM 25 MCG TAB PO SCH (05:40)
[2017-01-13] MEDS: LEVOTHYROXINE SODIUM 112 MCG TAB PO SCH (05:40)
--- NOTE | 2017-01-13 08:18 | HHI.PR ---
Subjective Remarks awake alert cooperative resting in bed, no dizziness Vomiting ceased over 24 hrs. ambulating without distress Objective Objective Results - Vital Signs Date Time Temp Pulse Resp B/P Pulse Ox O2 Delivery O2 Flow Rate FiO2 01/13/17 07:29 187/81 183/80 01/13/17 07:25 97.4 59 16 189/83 95 01/13/17 03:56 51 01/13/17 03:54 97.8 68 16 123/61 95 01/13/17 00:00 56 01/13/17 00:00 97.8 70 18 195/85 98 01/12/17 20:00 53 01/12/17 19:38 98.8 88 18 186/86 98 183/85 181/85 01/12/17 16:17 74 01/12/17 16:00 97.3 64 16 178/80 98 169/75 165/75 01/12/17 12:00 97.8 62 16 130/60 96 124/61 126/56 I/O 01/12/17 01/12/17 01/12/17 01/13/17 01/13/17 01/13/17 06:59 14:59 22:59 06:59 14:59 22:59 Intake Total 240 ml 800 ml 120 ml Balance 240 ml 800 ml 120 ml Intake Oral 240 ml 800 ml 120 ml # Voids 4 4 2 1 # Bowel Movements 0 Result Diagram: 01/11/17205701/11/172057 ROS General: Other Skin: Other (right eye black partially open today, improving) Physical Exam Physical Exam PHYSICAL EXAMINATION GENERAL: This is a well-developed, well-nourished elderly female who appears to be in no acute distress. She is alert and awake, HEAD: Normocephalic , right orbital cavity bruised, eyes open improving OROPHARYNGEAL: Oropharynx without erythema or edema. NECK: Supple. Trachea midline without deviation. CARDIAC: Regular rhythm, regular rate, S1 and S2 are heard. Lowest heart rate seen 60 LUNGS: Clear bilateral, no cough ABDOMEN: Soft, nontender, sounds are active EXTREMITIES: No LE edema. Pulses equal bilateral. NEUROLOGICAL: Patient mood and affect appropriate. No focal deficit SKIN:Warm and moist A/P Assessment and Plan 1. Recent syncopal episode with closed head injury. 2. Nausea and vomiting which has resolved. 3. Recent right wrist injury with metacarpal bone fracture, this is currently secured. 4. Hypertension. 5. History of hypothyroidism. 6. Atypical chest pain with movement, probably secondary to her fall. Vital signs reviewed normal trends, systolic 187 diastolic 81, does have some systolic pressures noted in the 120s range, Neuro checks reviewed negative No further nausea vomiting or dizziness noted, patient has been ambulatory up in room and out and lobo. Carotid studies negative Discharge planning probable today, we'll maintain patient on telemetry until time of discharge. Encouraged ambulation and to be out of bed today, note any symptoms Discussed with Dr. Holm, seen on his behalf Discussed with patient Discussed with nurse Jazmine Cho Jan 13, 2017 08:17
[2017-01-13] MEDS: SODIUM CHLORIDE 0.9% FLUSH 10 ML FLUSH IV FLUSH SCH (09:00)
[2017-01-13] MEDS: PRAVASTATIN SOD 20 MG TAB PO SCH (09:29)
[2017-01-13] MEDS: DOCUSATE SODIUM 50 MG/SENNA 8.6 MG TAB PO SCH (09:29)
[2017-01-13] MEDS: METOPROLOL TARTRATE 25 MG TAB PO SCH (09:29)
--- NOTE | 2017-01-13 12:37 | HHI.FF ---
Face to Face Verification Diagnosis: (1) Fall (2) Right wrist injury (3) Syncope (4) Closed head injury Physical Therapy Order: Evaluate and Treat Occupational Therapy Order: Evaluate and Treat Home Health Nursing Order: Medical education Instructions: Check INR, Saturday and Saturday I have seen patient Indy Alford on 01/13/17. My clinical findings support the need for the requested home health care services because: Ltd mobility - disease progression Deconditioned w/ increased weakness Limited ability to care for self High risk of falls (the) I certify that my clinical findings support that this patient is homebound because: Unsteady gait/balance (Her) Smith Holm MD Jan 13, 2017 12:37
[2017-01-13] MEDS: WARFARIN SOD 5 MG TAB PO SCH (16:16)
== END 2017-01-13 20:06 | disposition left against medical advice (07) ==
LOC: NEPC 18:48 → NEDA 23:23 → NEPGCP 01-12 01:35
PROVIDERS: ADMIT Specialist; ATTEND Specialist
DX: S06.0X9A Concussion with loss of consciousness of unspecified duration, initial encounter (principal); S62.309D Unspecified fracture of unspecified metacarpal bone, subsequent encounter for fracture with routine healing; I10 Essential (primary) hypertension; E03.9 Hypothyroidism, unspecified; R07.89 Other chest pain; R11.2 Nausea with vomiting, unspecified; R55 Syncope and collapse; S00.10XA Contusion of unspecified eyelid and periocular area, initial encounter; R53.1 Weakness; I45.10 Unspecified right bundle-branch block; R94.31 Abnormal electrocardiogram [ECG] [EKG]; R29.6 Repeated falls; E78.5 Hyperlipidemia, unspecified; E78.00 Pure hypercholesterolemia, unspecified; E07.9 Disorder of thyroid, unspecified; I70.90 Unspecified atherosclerosis; E66.9 Obesity, unspecified; Z87.891 Personal history of nicotine dependence; Z79.899 Other long term (current) drug therapy; Z79.01 Long term (current) use of anticoagulants; Z86.73 Personal history of transient ischemic attack (TIA), and cerebral infarction without residual deficits; W19.XXXA Unspecified fall, initial encounter; X58.XXXD Exposure to other specified factors, subsequent encounter
CPT/HCPCS: 70450; 80053; 81001; 84443; 84484; 85025; 85610; 85730; 93005; 93880; 96374; 97162; 99285; G0378; G8987; G8988; J2405; J7030

== ENCOUNTER 2017-01-21 18:13 | Emergency (ER) | payer MEDICARE ==
[~2017-01-21] VITALS: Ht 170.2 cm; Wt 73.0 kg
[~2017-01-21 18:13] MED LIST changes: -ACET500T36 PO
[2017-01-21 18:15] VITALS: BP 201/90; PULSE 74; RESP 17; TEMP 98.2; O2SAT 98
--- NOTE | 2017-01-21 18:27 | PD ---
Physical Exam Date Seen by Provider: Jan 21, 2017 Time Seen by Provider: 18:25 Narrative 76 yr old female who seen about 1 week ago s/p fall here with c/o worsening right sided forehead swelling. She also needs a repeat xray on her right arm. She was supposed to have it done today, but the xray machine was broken where she went. She is awaiting bed placement. Data Data Last Documented VS Vital Signs Date Time Temp Pulse Resp B/P Pulse Ox O2 Delivery O2 Flow Rate FiO2 01/21/17 18:15 98.2 74 17 201/90 98 MDM Medical Record Reviewed: Yes Supervised Visit with JOSE: No Condition: Stable Ladan Kruger Jan 21, 2017 18:27
== END 2017-01-21 19:18 | disposition left against medical advice (07) ==
LOC: NED 18:13
DX: R22.0 Localized swelling, mass and lump, head (principal)
CPT/HCPCS: 99281

== ENCOUNTER 2017-01-22 23:44 | Emergency (ER) | payer MEDICARE ==
[2017-01-22 23:47] VITALS: BP 203/98; PULSE 76; RESP 16; TEMP 97.6; O2SAT 98
--- NOTE | 2017-01-23 01:01 | PD ---
HPI Chief Complaint: Fall Time Seen by Provider: 00:52 Travel History International Travel<30 days: No Contact w/Intl Traveler<30days: No Traveled to known affect area: No History of Present Illness HPI This is a 55-year-old female who presents to the emergency department having fallen 2 weeks ago hitting her head. She is on Coumadin. At that time she had a head CT which was reassuring. Since then she says her headache is gone worse , constant, moderate severity described as a throbbing. She's been taking Tylenol for but it's not getting any better. She denies any numbness, weakness , difficulty walking or difficulty talking. PFSH Past Medical History Hx Anticoagulant Therapy: Yes (WARFARIN) Asthma: No Blood Disorders: No Anxiety: No Depression: No Heart Rhythm Problems: No Cancer: No Cardiovascular Problems: Yes High Cholesterol: Yes Chemotherapy: No Chest Pain: Yes Congestive Heart Failure: No Cerebrovascular Accident: Yes Diabetes: No Diminished Hearing: No Endocrine: No Gastrointestinal Disorders: No Genitourinary: No Hypertension: Yes Immune Disorder: No Implanted Vascular Access Dvce: No Musculoskeletal: No Neurologic: Yes (residual right-sided weakness and slurred speech from CVA 12 years ago) Psychiatric: No Reproductive: No Respiratory: No Immunizations Current: Yes Radiation Therapy: No Sleep Apnea: No Thyroid Disease: Yes ?: Not Menopausal: Yes Past Surgical History Abdominal Surgery: No Cardiac Surgery: No Ear Surgery: No Endocrine Surgery: No Eye Surgery: No Genitourinary Surgery: No Gynecologic Surgery: Yes (HYSTERECTOMY) Hysterectomy: Yes Neurologic Surgery: Yes (CRANIOTOMY) Oral Surgery: No Thoracic Surgery: No Tonsillectomy: Yes Other Surgery: Yes Social History Alcohol Use: Yes (RARELY) Tobacco Use: No (quit 12 yrs ago smoked cigs) Substance Use: No Allergies-Medications (Allergen,Severity, Reaction): Coded Allergies: Morphine (Verified Allergy, Mild, 01/23/17) Reported Meds & Prescriptions Reported Meds & Active Scripts Active Metoprolol Tartrate 25 Mg Tab 25 Mg PO BID 30 Days Reported Warfarin 5 Mg Tab 5 Mg PO DAILY Levothyroxine (Levothyroxine Sodium) 137 Mcg Tab 137 Mcg PO DAILY Simvastatin 10 Mg Tab 10 Mg PO DAILY Review of Systems Except as stated in HPI: all other systems reviewed are Neg Physical Exam Narrative GENERAL:Well appearing, no acute distress SKIN: Calcified hematoma on the right upper forehead, right infraorbital ecchymoses HEAD: Atraumatic. Normocephalic. EYES: Pupils equal and round. No injection or drainage. ENT: Moist mucous membranes NECK: Trachea midline. CARDIOVASCULAR: Regular rate and rhythm. No murmur appreciated. RESPIRATORY: Clear to auscultation. Breath sounds equal bilaterally. GASTROINTESTINAL: Abdomen soft, non-tender, nondistended. MUSCULOSKELETAL: No obvious deformities. NEUROLOGICAL: Awake and alert. No obvious cranial nerve deficits. Moving all extremities. No dysarthria or aphasia. PSYCHIATRIC: Appropriate mood and affect; insight and judgment normal. Data Data Last Documented VS Vital Signs Date Time Temp Pulse Resp B/P Pulse Ox O2 Delivery O2 Flow Rate FiO2 01/22/17 23:47 97.6 76 16 203/[address] Brain W/O Iv Contrast(Rout) (01/23/17 ) Labetalol Inj (Trandate Inj) (01/23/17 02:00) MDM Medical Decision Making Medical Screen Exam Complete: Yes Emergency Medical Condition: Yes Interpretation(s) Afebrile, hypertensive Last [address] 01/23/17 0000 Signed Impressions: Service Date/Time: Monday, January 23, 2017 01:26 - CONCLUSION: 1. Stable CT scan of the brain compared to the prior examination. 2. No focal or acute intracranial hemorrhage. 3. Old areas of infarction involving the left temporal lobe, left parietal lobe and bilateral thalamic areas. 4. Soft tissue swelling over the right forehead. Conrado Turpin MD Differential Diagnosis Subdural hematoma, migraine, tension headache, hypertension headache Narrative Course This is a 76-year-old female who presents to the emergency department with chronic head pain after a fall 2 weeks ago. She is normal neurologic exam. She is quite hypertensive. She was given a dose of labetalol. CT was obtained which was reassuring with no evidence of subdural hematoma. I think the patient can be discharged on tramadol and should follow-up with her primary care physician as an outpatient. Diagnosis Primary Impression: Headache Qualified Code: G44.329 - Chronic post-traumatic headache, not intractable Patient Instructions: General Instructions Additional Instructions: If you develop severe worsening headache, persistent vomiting, numbness, weakness, difficulty walking or difficulty talking return to the emergency department immediately. Sometimes in the emergency department we did not identify the cause of headaches. If you continued to have headaches it is very important that you followup with your primary care physician as you may need further testing with an MRI. Med/Other Pt SpecificInfo: Prescription(s) given Scripts Tramadol 50 Mg Tab50 Mg PO Q6H PRN (PAIN) #10 TAB Prov:Brittney Salamanca MD 01/23/17 Disposition: 01 DISCHARGE HOME Condition: Stable Brittney Salamanca MD Jan 23, 2017 01:01
--- NOTE | 2017-01-23 01:38 | RADRPT ---
EXAM DATE/TIME: 01/23/2017 01:26 [facility] COMPARISON: CT BRAIN W/O CONTRAST, January 11, 2017, 20:07. INDICATIONS : Trauma. Fall. RADIATION DOSE: 38.80 CTDIvol (mGy) MEDICAL HISTORY : Cerebrovascular disease. Cardiovascular disease Hypertension.Brain cancer SURGICAL HISTORY : Craniotomy. Hysterectomy. ENCOUNTER: Initial ACUITY: 1 day PAIN SCALE: 6/10 LOCATION: cranial TECHNIQUE: Multiple contiguous axial images were obtained of the head. Using automated exposure control and adj ustment of the mA and/or kV according to patient size, radiation dose was kept as low as reasonably a chievable to obtain optimal diagnostic quality images. DICOM format image data is available electro nically for review and comparison. FINDINGS: CEREBRUM: The ventricles are mildly prominent but stable compared to the prior study.. No evidence of midline shift, mass lesion, hemorrhage or acute infarction. Stable old area of encephalomalacia in the left t emporal lobe and left mid parietal area. Evidence of previous left-sided craniotomy. No extra-axial f luid collections are seen. Stable old bilateral thalamic infarcts, left greater than right. Cavum sep dayna pellucidum. POSTERIOR FOSSA: The cerebellum and brainstem are intact. The 4th ventricle is midline. The cerebellopontine angle i s unremarkable. EXTRACRANIAL: The visualized portion of the orbits is intact. Focal soft tissue swelling over the right forehead. SKULL: Evidence of previous left-sided craniotomy. Otherwise, the calvarium remains intact and stable compar ed to the prior study. CONCLUSION: 1. Stable CT scan of the brain compared to the prior examination. 2. No focal or acute intracranial hemorrhage. 3. Old areas of infarction involving the left temporal lobe, left parietal lobe and bilateral thalami c areas. 4. Soft tissue swelling over the right forehead. Conrado Turpin MD on January 23, 2017 at 1:33 Board Certified Radiologist. This report was verified electronically.
[2017-01-23] MEDS ORDERED: TRAM50TA PO (01:51)
[2017-01-23] MEDS ORDERED: LABETALOL HCL 100 MG/20 ML VIAL IV PUSH ONE (02:00)
[2017-01-23 02:05] VITALS: BP 183/87; PULSE 77; RESP 16; O2SAT 100
== END 2017-01-23 02:21 | disposition home or self-care (01) ==
LOC: NEPE 23:44
DX: R51 Headache (principal); I10 Essential (primary) hypertension; I69.928 Other speech and language deficits following unspecified cerebrovascular disease; I69.951 Hemiplegia and hemiparesis following unspecified cerebrovascular disease affecting right dominant side; E78.00 Pure hypercholesterolemia, unspecified; Z79.01 Long term (current) use of anticoagulants; Z79.899 Other long term (current) drug therapy; Z87.891 Personal history of nicotine dependence
CPT/HCPCS: 70450; 99284

== ENCOUNTER 2017-02-13 20:03 | Emergency (ER) | payer MEDICARE ==
[~2017-02-13] VITALS: Ht 170.2 cm; Wt 75.3 kg
[~2017-02-13 20:03] MED LIST changes: +TRAM50TA PO
[2017-02-13 20:16] VITALS: BP 190/84; PULSE 78; RESP 20; TEMP 97.6; O2SAT 98
--- NOTE | 2017-02-13 20:37 | PD ---
HPI Chief Complaint: Musculoskeletal Complaint Time Seen by Provider: 20:28 Travel History International Travel<30 days: No Contact w/Intl Traveler<30days: No Traveled to known affect area: No History of Present Illness HPI Patient 76-year-old female presents emergency department for sleep fall earlier today. She states she drove herself here has been able towards since the event. She states she was getting out of the pool and misstepped and fell on her left side. She is complaining of left hip pain. Denies any head injury neck injury back injury chest pain shortness of breath. The patient does have a history of stroke with some mild right-sided deficits and some mild slurred speech. She is alert and awake and oriented and able to provide her own history. 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) Psychiatric: No Reproductive: No Respiratory: No Immunizations Current: Yes Radiation Therapy: No Sleep Apnea: No Thyroid Disease: Yes Menopausal: Yes Past Surgical History Abdominal Surgery: No Cardiac Surgery: No Ear Surgery: No Endocrine Surgery: No Eye Surgery: No Genitourinary Surgery: No Gynecologic Surgery: Yes (HYSTERECTOMY) Hysterectomy: Yes Neurologic Surgery: Yes (CRANIOTOMY) Oral Surgery: No Thoracic Surgery: No Tonsillectomy: Yes Other Surgery: Yes Social History Alcohol Use: Yes (RARELY) Tobacco Use: No (quit 12 yrs ago smoked cigs) Substance Use: No Allergies-Medications (Allergen,Severity, Reaction): Coded Allergies: Morphine (Verified Allergy, Mild, 02/13/17) Reported Meds & Prescriptions Reported Meds & Active Scripts Active Tramadol (Tramadol HCl) 50 Mg Tab 50 Mg PO Q6H PRN Metoprolol Tartrate 25 Mg Tab 25 Mg PO BID 30 Days Reported Warfarin 5 Mg Tab 5 Mg PO DAILY Levothyroxine (Levothyroxine Sodium) 137 Mcg Tab 137 Mcg PO DAILY Simvastatin 10 Mg Tab 10 Mg PO DAILY Review of Systems Except as stated in HPI: all other systems reviewed are Neg Physical Exam Narrative GENERAL: Well-developed well-nourished no obvious distress. SKIN: Warm and dry. HEAD: Normocephalic. There is some mild ecchymosis underneath the right eye, small hematoma over the right forehead. No mcpherson signs. EYES: No scleral icterus. No injection or drainage. NECK: Supple, trachea midline. No JVD or lymphadenopathy. CARDIOVASCULAR: Regular rate and rhythm without murmurs, gallops, or rubs. RESPIRATORY: Breath sounds equal bilaterally. No accessory muscle use. GASTROINTESTINAL: Abdomen soft, non-tender, nondistended. MUSCULOSKELETAL: No cyanosis, or edema. No obvious deformities, there is some mild tenderness in the proximal femur, pelvis stable. No bruising seen the lacerations seen. No tenderness at the knee distal femur tib-fib ankle bilaterally. Pulses motor and sensory intact distally in all 4 extremity's. BACK: Nontender without obvious deformity. No CVA tenderness. Data Data Last Documented VS Vital Signs Date Time Temp Pulse Resp B/P Pulse Ox O2 Delivery O2 Flow Rate FiO2 02/13/17 20:16 97.6 78 20 190/84 98 Orders Hip, Uni(Ap&Lat) W Ap Pelvis (02/13/17 ) Acetaminophen (Tylenol) (02/13/17 21:45) MDM Medical Decision Making Medical Screen Exam Complete: Yes Emergency Medical Condition: Yes Differential Diagnosis Fall, hip fracture, hip contusion, head injury. Narrative Course Patient roomed in emergency department, x-rays are obtained and are negative. She is able to demonstrate ambulation in the emergency department pain. Patient does have some evidence of head trauma she states this is her prior fall. I asked her while she was falling and she states as long story "January was long for her and she had some falls." She is alert and awake and oriented and states that the head injury was from a previous fall and denies head injury adamantly today. She states that she had a CAT scan of her head before and does not want another one today. He is reasonable given that she is adamantly declining any head injury. She demonstrate ambulation and wished to go home. Discussed with her my concerns are her driving and she states that she has been driving for sometime after her stroke. At this time I do not have any evidence to keep her here against her advice she stable for discharge. Diagnosis Primary Impression: Hip pain Patient Instructions: Fall Prevention (DC), General Instructions, RICE Therapy (ED) Disposition: 01 DISCHARGE HOME Condition: Stable Ildefonso Lantigua MD Feb 13, 2017 20:37
--- NOTE | 2017-02-13 21:25 | RADRPT ---
EXAM DATE/TIME: 02/13/2017 20:54 [facility] COMPARISON: No previous studies available for comparison. INDICATIONS : Left hip pain post fall. MEDICAL HISTORY : None. SURGICAL HISTORY : None. ENCOUNTER: Initial ACUITY: 1 day PAIN SCORE: 8/10 LOCATION: Left hip. FINDINGS: Examination of the left hip was performed with AP Pelvis. The primary and secondary trabecular patte rn of the femoral neck is intact. The hip joint is of normal width without significant sclerosis or bony hypertrophy. The acetabulum is grossly intact. CONCLUSION: 1. No acute findings. Osteopenia. Kody Maddox MD on February 13, 2017 at 21:21 Board Certified Radiologist. This report was verified electronically.
[2017-02-13] MEDS ORDERED: ACETAMINOPHEN 325 MG TAB PO ONE (21:45)
== END 2017-02-13 22:18 | disposition home or self-care (01) ==
LOC: PHED 20:03
DX: M25.552 Pain in left hip (principal); I10 Essential (primary) hypertension; E07.9 Disorder of thyroid, unspecified; E78.00 Pure hypercholesterolemia, unspecified; Z79.01 Long term (current) use of anticoagulants; Z86.79 Personal history of other diseases of the circulatory system; Z86.69 Personal history of other diseases of the nervous system and sense organs; W18.39XA Other fall on same level, initial encounter; Y92.34 Swimming pool (public) as the place of occurrence of the external cause
CPT/HCPCS: 73502; 99283

== ENCOUNTER 2017-02-18 13:31 | Emergency (ER) | payer MEDICARE ==
[~2017-02-18] VITALS: Ht 170.2 cm; Wt 74.9 kg
[2017-02-18 14:05] VITALS: BP 133/81; PULSE 84; RESP 18; TEMP 98.4; O2SAT 96
--- NOTE | 2017-02-18 15:02 | PD ---
HPI Chief Complaint: Hip Injury Time Seen by Provider: 14:10 Travel History International Travel<30 days: No Contact w/Intl Traveler<30days: No Traveled to known affect area: No History of Present Illness HPI 76-year-old female with history of prior CVA and right-sided deficit presents emergency department for evaluation of left hip pain. Patient reports approximately one month ago she had a slip and fall getting out of the pool falling onto the left hip. She was evaluated in the emergency department and reports she had a negative x-ray of hip and pelvis at that time. She has had continued pain in the left hip/pelvis region since the fall. She reports today the pain was increased making it difficult weight bear therefore she came in for evaluation. She denies reinjury. She denies abdominal pain. 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) Psychiatric: No Reproductive: No Respiratory: No Immunizations Current: Yes Radiation Therapy: No Sleep Apnea: No Thyroid Disease: Yes ?: Not Menopausal: Yes Past Surgical History Abdominal Surgery: No Cardiac Surgery: No Ear Surgery: No Endocrine Surgery: No Eye Surgery: No Genitourinary Surgery: No Gynecologic Surgery: Yes (HYSTERECTOMY) Hysterectomy: Yes Neurologic Surgery: Yes (CRANIOTOMY) Oral Surgery: No Thoracic Surgery: No Tonsillectomy: Yes Other Surgery: Yes Social History Alcohol Use: Yes (RARELY) Tobacco Use: No Substance Use: No Allergies-Medications (Allergen,Severity, Reaction): Coded Allergies: Morphine (Verified Allergy, Mild, CONFUSION, 02/18/17) Reported Meds & Prescriptions Reported Meds & Active Scripts Active Tramadol (Tramadol HCl) 50 Mg Tab 50 Mg PO Q6H PRN Metoprolol Tartrate 25 Mg Tab 25 Mg PO BID 30 Days Reported Warfarin 5 Mg Tab 5 Mg PO DAILY Levothyroxine (Levothyroxine Sodium) 137 Mcg Tab 137 Mcg PO DAILY Simvastatin 10 Mg Tab 10 Mg PO DAILY Review of Systems Except as stated in HPI: all other systems reviewed are Neg General / Constitutional: No: Fever Eyes: No: Visual changes HENT: No: Headaches Cardiovascular: No: Chest Pain or Discomfort Respiratory: No: Shortness of Breath Gastrointestinal: No: Abdominal Pain Genitourinary: No: Dysuria Skin: No Rash Physical Exam Narrative GENERAL: Well-nourished, well-developed patient. SKIN: Focused skin assessment warm/dry. HEAD: Normocephalic. EYES: No scleral icterus. No injection or drainage. NECK: Supple, trachea midline. No JVD or lymphadenopathy. CARDIOVASCULAR: Regular rate and rhythm without murmurs, gallops, or rubs. RESPIRATORY: Breath sounds equal bilaterally. No accessory muscle use. GASTROINTESTINAL: Abdomen soft, non-tender, nondistended. MUSCULOSKELETAL: No cyanosis, or edema. On examination patient has pain to the left side of the pelvis. Pelvis is stable. Left hip is nontender with full painless range of motion. 2+ distal pulses. Normal sensation in lower extremities. BACK: Nontender without obvious deformity. No CVA tenderness. Data Data Last Documented VS Vital Signs Date Time Temp Pulse Resp B/P Pulse Ox O2 Delivery O2 Flow Rate FiO2 02/18/17 14:05 98.4 84 18 133/[address] Pelvis W/O Iv Contrast (02/18/17 ) Ketorolac Inj (Toradol Inj) (02/18/17 16:00) [facility] Medical Decision Making Medical Screen Exam Complete: Yes Emergency Medical Condition: Yes Differential Diagnosis Pelvic fracture, hip fracture, hip contusion Narrative Course 76-year-old female with complaints of left hip pelvic region pain status post fall approximately one month ago. According to the EMR patient had x-ray of pelvis and hip after that injury which were negative for fracture. On exam patient has tenderness in the left pelvic iliac crest region given her age and continued pain since the fall CT scan of the pelvis will be ordered to rule out fracture. CT of the pelvis is negative for acute fracture. Patient given shot of Toradol. Patient observed ambulating in the emergency department without difficulty. She is requesting discharge. Patient will be discharged home. Instructed to follow-up with her primary doctor. Patient verbalizes understanding and agrees to plan Diagnosis Primary Impression: Hip pain Qualified Code: M25.552 - Pain of left hip joint Referrals: Primary Care Physician Additional Instructions: Take [id number] Motrin [id number] milligrams as needed for pain. Follow-up with your primary care doctor. Return to emergency department if he developed new or worsening symptoms. Disposition: 01 DISCHARGE HOME Condition: Stable Jennifer Galvin Feb 18, 2017 15:02
--- NOTE | 2017-02-18 15:40 | RADRPT ---
EXAM DATE/TIME: 02/18/2017 15:05 [facility] COMPARISON: No previous studies available for comparison. INDICATIONS : Left pelvic pain from fall a few days ago. ORAL CONTRAST: No oral contrast ingested. RADIATION DOSE: 29.53 CTDIvol (mGy) MEDICAL HISTORY : None SURGICAL HISTORY : Tonsillectomy. Craniotomy.Hysterectomy. ENCOUNTER: Initial ACUITY: 4 - 6 days PAIN SCALE: 5/10 LOCATION: Left pelvis TECHNIQUE: Volumetric scanning of the pelvis was performed. Using automated exposure control and adjustment of the mA and/or kV according to patient size, radiation dose was kept as low as reasonably achievable t o obtain optimal diagnostic quality images. DICOM format image data is available electronically for review and comparison. FINDINGS: BOWEL/MESENTERY: The visualized small and large bowel demonstrate no acute abnormality. There is no free fluid. BLADDER: There is no wall thickening or mass. RETROPERITONEUM: There is no aneurysm or lymphadenopathy. The vena cava filter is evident. REPRODUCTIVE: Within normal limits. INGUINAL: There is no lymphadenopathy or hernia. MUSCULOSKELETAL: Osteopenia without fracture or dislocation. There are no significant degenerative changes. CONCLUSION: Negative for fracture dislocation. Osvaldo Quintana MD FACR on February 18, 2017 at 15:35 Board Certified Radiologist. This report was verified electronically.
[2017-02-18] MEDS ORDERED: KETOROLAC TROMETHAMINE 60 MG/2 ML (IM) VIAL IM ONE (16:00)
[2017-02-18] MEDS ORDERED: ULTR50TA5 PO (16:13)
[2017-02-18 16:18] VITALS: BP 174/88
== END 2017-02-18 17:05 | disposition home or self-care (01) ==
LOC: PHEFT 13:31
DX: M25.552 Pain in left hip (principal)
CPT/HCPCS: 72192; 96372; 99285; J1885